=== PATIENT | male | born 1955 | race Caucasian/White ===

== ENCOUNTER 2020-06-15 03:14 | Inpatient (IN) | payer BC ==
--- OUTSIDE RECORDS SUMMARY | 2020-06-15 03:16 | XMS REPORT | Continuity of Care Document ---
:1955 Author Organization [facility] t Address [address] [place] [address] Care Team Providers Name Role Phone Unavailable Unavailable Unavailable Problems Condition Condition Condition Status Onset Resolution Last Treating Co mments Source Name Details Category Date Date Treatment Clinician Date PVC PVC Problem Active [facility]ature (premature [facility] - ventricula ventricula Me moria r r l contractio contractio Ou tpati n) n) ent Clinics Alcohol Alcohol Problem Active [facility] abuse [facility] Essential Essential Problem Active [facility] hypertensi hypertensi [facility] kes - on on [facility]oria l [facility] ent Clinics Type 2 Type [address] [facility] diabetes diabetes [facility] - mellitus mellitus Memori a with with l diabetic diabetic Outpat i peripheral peripheral en t angiopathy angiopathy Cl inics without without gangrene, gangrene, without without long-term long-term current current use of use of insulin insulin Atheroscle Atheroscle Problem Active [facility] rosis rosis [facility] Clinics Non-rheuma Non-rheuma Problem Active [facility] tic mitral tic mitral Anamaria kes - regurgitat regurgitat Me moria ion ion l [facility] ent Clinics Serum Serum Problem Active [facility] calcium calcium [facility] - elevated elevated Memori a l [facility] ent Clinics Vitamin D Vitamin D Problem Active [facility] deficiency deficiency [facility] k[facility] - [facility]oria l [facility] Clinics Primary Primary Problem Active [facility] osteoarthr osteoarthr [facility]aria kes - itis of itis of Memoria right knee right knee l [facility] ent Clinics Contact Contact Diagnosis [facility] with and with and [facility] - (suspected (suspected Me moria ) exposure ) exposure l to other to other Outpat i viral viral ent communicab communicab Cl inics le le diseases diseases Allergies, Adverse Reactions, Alerts Allergy Allergy Status Severity Reaction(s) Onset Inactive Treating Comm ents Source Name Type Date Date Clinician Compazin Adverse Active Info Not [facility] Reaction Available [facility] Medications Ordered Filled Start Stop Current Ordering Indication Dosage Frequency Signature Comments Components Source Medication Medication Date Date Medication? Clinician (SIG) Name Name Fish Oil Fish Oil Yes Lanie [address] [place] [facility]ics D3 Adult D3 Adult Yes Lanie [address] [place] [facility]ics Aspirin Aspirin Yes Lanie [address] [facility] [place] [facility] Lipitor Lipitor Yes Lanie [address] [facility] [place] [facility] - [facility] ent Clinics Diovan HCT Diovan HCT Yes Lanie [address] [facility] [place] [facility] - [facility] ent Clinics Metformin Metformin Yes Lanie TAKE [address] HCl HCl [place] TABLET BY [facility] - MOUTH Memoria TWICE A l DAY [facility] ent Clinics Plavix Plavix Yes Lanie [address] [facility] [place] [facility] ent Clinics Amlodipine Amlodipine Yes Lanie [address] [facility] Besylate Besylate [place] kes - [facility] ent Clinics Atorvastati Atorvastati Yes Lanie not [facility] n Calcium n Calcium [place] defined [facility] - Memoria l [facility] ent Clinics Valsartan-H Valsartan-H Yes Lanie not [facility] ydrochlorot ydrochlorot [place] defined [facility] - hiazide hiazide Memoria l [facility] ent Clinics Immunizations Ordered Filled Immunization Date Status Comments Sourc e Immunization Name Name Flucrajx Flucbayronvax 2018-03-[address] [facility] Procedures This patient has no known procedures. Encounters Start End Encounter Admission Attending Care Care Encounter Source Date/Time Date/Time Type Type Clinicians Facility Department ID 2019-12-20 2019-12-20 Outpatient Reji Ulloa [id number] [facility] 14[facility] Medicine Medicine [facility] ent Clinics 2019-12-20 2019-12-20 Outpatient Reji Ulloa [id number] [facility] 08:20:00 08:20:00 t [facility] ent Clinics 2018-09-07 2018-09-07 [place] [id number] [facility] 09:30:00 09:30:00 t [facility] ent Clinics 2018-07-13 2018-07-13 [facility] [facility] [id number] [facility] 11:06:00 11:06:00 t [facility] ent Clinics 2018-03-30 2018-03-30 [facility] [id number] 09:34:00 09:34:00 t [facility] ent Clinics 2018-03-23 2018-03-23 [place] [id number] [facility] 14:24:00 14:24:00 t [facility] ent Clinics 2018-03-15 2018-03-15 [place] [facility] [place] [id number] [facility] 11:30:00 11:30:00 t [facility] ent Clinics Results This patient has no known results.
[2020-06-15] MEDS ORDERED: METOPROLOL TARTRATE 5 MG/5 ML INJ IV ONE (03:55)
[2020-06-15] MEDS ORDERED: MORPHINE 4 MG/ML SYR ONE (03:55)
[2020-06-15 04:03] LABS: Absolute Lymphocytes (CBC) 1.7 K/uL (0.7-4.9); Basophils % 1.2 % (0-1.3); Hematocrit 38.6 % (39.6-49.0); Lymphocytes % 25.5 % (15.3-44.8); MPV 9.5 fL (7.6-11.3); RBC Red Blood Cell Count 4.38 M/uL (4.33-5.43)
[2020-06-15 04:04] LABS: Protime INR 0.91
[2020-06-15 04:17] LABS: Albumin 3.7 g/dL (3.4-5.0); Bilirubin Direct 0.1 mg/dL (0-0.2); Bilirubin Total 0.4 mg/dL (0.2-1.0); Potassium 3.8 mmol/L (3.5-5.1); Protein, Total 7.6 g/dL (6.4-8.2)
--- NOTE | 2020-06-15 04:32 | ER ---
Nurse's Notes [facility] Name: Santy N[facility] Age: 65 yrs Sex: Male : 1955 Arrival Date: 06/15/2020 Time: 03:15 Bed 7 Private MD: Diagnosis: Non-ST elevation (NSTEMI) myocardial infarction;Atypical atrial flutter Presentation: 06/15 03:36 Chief complaint: Patient states: Reports chest pain that woke him from his sleep this lp1 morning; states intermittent chest pain for the last 2-3 weeks; states some shortness of breath. Coronavirus screen: Client denies travel out of the [place] in the last 14 days. shortness of breath. Ebola Screen: No symptoms or risks identified at this time. Initial Sepsis Screen: Does the patient meet any 2 criteria? No. Patient's initial sepsis screen is negative. Does the patient have a suspected source of infection? No. Patient's initial sepsis screen is negative. Risk Assessment: Do you want to hurt yourself or someone else? Patient reports no desire to harm self or others. Onset of symptoms was June 15, 2020 at 02:00. 03:36 Method Of Arrival: Wheelchair lp1 03:36 Acuity: TANNA 2 lp1 Triage Assessment: 03:30 General: Appears in no apparent distress. comfortable, Behavior is calm, cooperative, rr5 appropriate for age. 03:30 Pain: Complains of pain in chest. rr5 Historical: - Allergies: 03:41 Compazine; lp1 - Home Meds: 03:41 Metformin Oral [Active]; atorvastatin oral oral [Active]; Aspirin Oral [Active]; lp1 - PMHx: 03:41 Diabetes - NIDDM; Hyperlipidemia; Hypertension; lp1 - PSHx: 03:41 Hernia repair; lp1 - Immunization history:: Adult Immunizations up to date. - Social history:: Smoking status: Patient denies any tobacco usage or history of. Screenin:30 Fall Risk IV access (20 points). Total Vogt Fall Scale indicates No Risk (0-24 pts). rr5 03:41 Abuse screen: Denies threats or abuse. Denies injuries from another. Nutritional lp1 screening: No deficits noted. Tuberculosis screening: No symptoms or risk factors identified. Assessment: 03:30 General: Appears in no apparent distress. uncomfortable. rr5 03:30 Pain: Complains of pain in chest Pain radiates to left arm and neck Pain currently is 5 rr5 out of 10 on a pain scale. Quality of pain is described as aching, Pain began gradually, Is intermittent. Neuro: Level of Consciousness is awake, alert, obeys commands, Oriented to person, place, time, situation. Cardiovascular: Reports chest pain, Capillary refill < 3 seconds Patient's skin is warm and dry. Respiratory: Reports shortness of breath Airway is patent Respiratory effort is even, unlabored, Respiratory pattern is regular, symmetrical. GI: Abdomen is round non-distended. : No signs and/or symptoms were reported regarding the genitourinary system. EENT: No signs and/or symptoms were reported regarding the EENT system. Derm: Skin is intact, is healthy with good turgor, Skin temperature is warm. Musculoskeletal: Circulation, motion, and sensation intact. Capillary refill < 3 seconds. 03:55 Reassessment: Patient appears in no apparent distress at this time. Patient is alert, rr5 oriented x 3, equal unlabored respirations, skin warm/dry/pink. repeat ECG done and checked by ED provider Patient states symptoms have improved. 04:29 Reassessment: troponin 2.0 glucose 432 candy from laboratory called ED provider aware. rr5 04:37 Reassessment: ED provider order heparin drip without loading bolus dose as confirmed. rr5 05:30 Reassessment: Patient appears in no apparent distress at this time. Patient is alert, rr5 oriented x 3, equal unlabored respirations, skin warm/dry/pink. no signs of bleeding ongoing heparin drip. 06:01 Reassessment: Patient appears in no apparent distress at this time. Patient is alert, rr5 oriented x 3, equal unlabored respirations, skin warm/dry/pink. Patient denies pain at this time. Patient states feeling better. Patient states symptoms have improved. 06:20 Reassessment: admitted as ER hold awaiting for in patient orders. rr5 06:45 Reassessment: Patient appears in no apparent distress at this time. Patient is alert, rr5 oriented x 3, equal unlabored respirations, skin warm/dry/pink. hospitalist at bedside. Vital Signs: 03:36 BP 161 / 104; Pulse 137; Resp 19; Temp 98.1(O); Pulse Ox 96% on R/A; Weight 84.82 kg lp1 (R); Height 5 ft. 10 in. (177.80 cm); Pain 5/10; 03:50 BP 160 / 108; Pulse 75; Resp 18; Pulse Ox 98% ; rr5 04:35 BP 117 / 62; Pulse 78; Resp 16; Pulse Ox 99% ; Pain 3/10; rr5 05:30 BP 123 / 80; Pulse 70; Resp 17; Pulse Ox 98% ; rr5 06:00 BP 113 / 75; Pulse 79; Resp 15; Pulse Ox 98% ; Pain 0/10; rr5 03:36 Body Mass Index 26.83 (84.82 kg, 177.80 cm) lp1 ED Course: 03:15 Patient arrived in ED. bp1 03:23 Andrew Arboleda MD is Attending Physician. tw4 03:30 Mathieu Acevedo, RN is Primary Nurse. rr5 03:40 Triage completed. lp1 03:40 Arm band placed on. lp1 03:41 Patient has correct armband on for positive identification. Placed in gown. Bed in low lp1 position. Call light in reach. rn office on. Pulse ox on. NIBP on. 03:41 Patient maintains SpO2 saturation greater than 95% on room air. lp1 03:48 Inserted saline lock: 18 gauge in left forearm, using aseptic technique. Blood rr5 collected. 04:12 No provider procedures requiring assistance completed. rr5 04:26 XRAY Chest (1 view) In Process Unspecified. EDMS 04:30 Dennis Rowe DO is Hospitalizing Provider. tw4 06:03 Patient admitted, IV remains in place. intact, No redness/swelling at site. rr5 07:26 Notified the admitting physician of a critical lab result(s), troponin-5.64, Dr Kelsey saeed called on the phone. Informed him that there is no cardiology consult and no more repeat troponin's to be drawn. He stated he would put in some orders. 08:22 Primary Nurse role handed off by Mathieu Acevedo, RN darlin 08:22 Jennifer Dawn, HEATHER is Primary Nurse. sv Administered Medications: 03:45 Drug: morphine 4 mg {Note: rass 0.} Route: IVP; Site: left forearm; rr5 04:40 Follow up: Response: No adverse reaction rr5 04:40 Follow up: Response: RASS: Alert and Calm (0) rr5 03:46 Drug: Lopressor 5 mg Route: IVP; Site: left forearm; rr5 04:46 Follow up: Response: No adverse reaction; Blood pressure is lowered rr5 05:10 Drug: Heparin (PA Drip) 12 units/kg/hr - (HEParin 00065 units, D5W 500 ml) rr5 {Co-Signature: mg2 (Jose Raul Woods RN).} Route: IV; Rate: calculated rate; Site: left forearm; 06:21 Follow up: Response: No adverse reaction; IV Status: Infusion continued upon admission; rr5 IV Intake: 20ml Intake: 06:20 PO: 480ml (Water); Total: 480ml. rr5 06:21 IV: 20ml; Total: 500ml. rr5 Output: 06:20 Urine: 850ml (Voided); Total: 850ml. rr5 Outcome: 04:31 Decision to Hospitalize by Provider. tw4 06:04 Condition: stable rr5 06:04 Instructed on the need for admit. 06:30 Admitted to ER Hold. Please see [facility] for further documentation. rr5 17:24 Patient left the ED. sv Signatures: Dispatcher [employer] Jennifer Diaz, RN RN sv Carolann Delgadillo, RN RN lp1 Andrew Arboleda MD MD tw4 Mathieu Acevedo RN RN rr5 Tri Denson RN mg2
--- NOTE | 2020-06-15 04:32 | EDPHYS ---
Physician Documentation [facility] Name: Santy Nix Age: 65 yrs Sex: Male : 1955 Arrival Date: 06/15/2020 Time: 03:15 Bed 7 Private MD: ED Physician Andrew Arboleda HPI: 06/15 03:43 This 65 yrs old Male presents to ER via Wheelchair with complaints of Chest tw4 Pain > 30 y/o. 03:43 The patient or guardian reports chest pain that is located primarily in the anterior tw4 chest wall. The patient or guardian reports chest pain that is located primarily in the anterior chest wall, left. Onset: yesterday. The pain does not radiate. Associated signs and symptoms: The patient has no apparent associated signs or symptoms. The chest pain is described as aching. Duration: The patient or guardian reports a single episode. Severity of pain: At its worst the pain was moderate in the emergency department the pain is unchanged. Historical: - Allergies: 03:41 Compazine; lp1 - Home Meds: 03:41 Metformin Oral [Active]; atorvastatin oral oral [Active]; Aspirin Oral [Active]; lp1 - PMHx: 03:41 Diabetes - NIDDM; Hyperlipidemia; Hypertension; lp1 - PSHx: 03:41 Hernia repair; lp1 - Immunization history:: Adult Immunizations up to date. - Social history:: Smoking status: Patient denies any tobacco usage or history of. ROS: 03:43 Constitutional: Negative for fever, chills, and weight loss, Eyes: Negative for injury, tw4 pain, redness, and discharge, Respiratory: Negative for shortness of breath, cough, wheezing, and pleuritic chest pain, Abdomen/GI: Negative for abdominal pain, nausea, vomiting, diarrhea, and constipation, Back: Negative for injury and pain, Skin: Negative for injury, rash, and discoloration, Neuro: Negative for headache, weakness, numbness, tingling, and seizure. 03:43 Cardiovascular: Positive for chest pain, Negative for edema, orthopnea, palpitations, paroxysmal nocturnal dyspnea. Exam: 03:43 Constitutional: This is a well developed, well nourished patient who is awake, alert, tw4 and in no acute distress. Head/Face: Normocephalic, atraumatic. Chest/axilla: Normal chest wall appearance and motion. Nontender with no deformity. No lesions are appreciated. Respiratory: Lungs have equal breath sounds bilaterally, clear to auscultation and percussion. No rales, rhonchi or wheezes noted. No increased work of breathing, no retractions or nasal flaring. Abdomen/GI: Soft, non-tender, with normal bowel sounds. No distension or tympany. No guarding or rebound. No evidence of tenderness throughout. Back: No spinal tenderness. No costovertebral tenderness. Full range of motion. MS/ Extremity: Pulses equal, no cyanosis. Neurovascular intact. Full, normal range of motion. Neuro: Awake and alert, GCS 15, oriented to person, place, time, and situation. Cranial nerves II-XII grossly intact. Motor strength 5/5 in all extremities. Sensory grossly intact. Cerebellar exam normal. Normal gait. 03:43 Cardiovascular: Rate: tachycardic, actual rate is 140 bpm, Rhythm: regular. Vital Signs: 03:36 BP 161 / 104; Pulse 137; Resp 19; Temp 98.1(O); Pulse Ox 96% on R/A; Weight 84.82 kg lp1 (R); Height 5 ft. 10 in. (177.80 cm); Pain 5/10; 03:50 BP 160 / 108; Pulse 75; Resp 18; Pulse Ox 98% ; rr5 04:35 BP 117 / 62; Pulse 78; Resp 16; Pulse Ox 99% ; Pain 3/10; rr5 05:30 BP 123 / 80; Pulse 70; Resp 17; Pulse Ox 98% ; rr5 06:00 BP 113 / 75; Pulse 79; Resp 15; Pulse Ox 98% ; Pain 0/10; rr5 03:36 Body Mass Index 26.83 (84.82 kg, 177.80 cm) lp1 MDM: 03:24 Patient medically screened. tw4 04:34 Differential diagnosis: acute myocardial infarction, acute pericarditis, coronary tw4 artery disease pneumonia, pulmonary embolus, unstable angina. The patient was given aspirin in the Emergency Department. Data reviewed: vital signs, nurses notes. Counseling: I had a detailed discussion with the patient and/or guardian regarding: the historical points, exam findings, and any diagnostic results supporting the discharge/admit diagnosis, lab results, radiology results. 21:36 Data interpreted: Pulse oximetry: Interpretation: hypoxia. Plan: O2 by Mask applied. tw4 Physician consultation: Dennis Rowe DO regarding admission, to the ICU, patient's condition, and will see patient in ED. ED course: Pt required bipap in the ED. 06/15 03:36 Order name: Basic Metabolic Panel; Complete Time: 04:32 rr5 06/15 04:32 Interpretation: Normal except: GLUC 432; GFR 77. 06/15 03:36 Order name: CBC with Diff; Complete Time: 04:32 rr5 06/15 04:32 Interpretation: Normal except: HGB 13.4; HCT 38.6; PLT 133. 06/15 03:36 Order name: LFT's; Complete Time: 04:32 rr5 06/15 04:33 Interpretation: Normal except: ALK 161; GLOB 3.9; A/G 0.9. 06/15 03:36 Order name: Magnesium; Complete Time: 04:32 rr5 06/15 04:33 Interpretation: Within normal limits: MG 2.0. 06/15 03:36 Order name: NT PRO-BNP; Complete Time: 04:32 rr06/15 04:33 Interpretation: Abnormal: NT PRO-BNP 221. 06/15 03:36 Order name: PT-INR; Complete Time: 04:32 rr5 06/15 04:33 Interpretation: Within normal limits: PT 10.7. 06/15 03:36 Order name: Troponin (emerg Dept Use Only); Complete Time: 04:32 rr5 06/15 04:33 Interpretation: Abnormal: TROPED 2.00. 06/15 04:34 Order name: Ptt, Activated rr5 06/15 06:24 Order name: Troponin I EDWY 06/15 06:24 Order name: Urinalysis EDWY 06/15 06:24 Order name: CKMB Creatine Kinase MB EDWY 06/15 06:24 Order name: CKMB Creatine Kinase MB EDMS 06/15 06:24 Order name: CKMB Creatine Kinase MB EDMS 06/15 03:36 Order name: XRAY Chest (1 view) rr5 06/15 03:36 Order name: EKG; Complete Time: 03:37 rr5 06/15 03:36 Order name: Cardiac monitoring; Complete Time: 03:42 rr5 06/15 03:36 Order name: EKG - Nurse/Tech; Complete Time: 03:42 rr5 06/15 03:36 Order name: IV Saline Lock; Complete Time: 03:42 rr5 06/15 03:36 Order name: Labs collected and sent; Complete Time: 03:42 rr5 06/15 06:24 Order name: NPO EDMS 06/15 06:24 Order name: CKMB Creatine Kinase MB EDMS 06/15 06:45 Order name: SARS-COV-2 RT PCR EDMS 06/15 08:18 Order name: Glucose, Ancillary Testing EDMS 06/15 12:00 Order name: Troponin I EDMS 06/15 12:24 Order name: Glucose, Ancillary Testing EDMS 06/15 16:46 Order name: Glucose, Ancillary Testing EDMS 06/15 03:36 Order name: O2 Per Protocol; Complete Time: 03:42 rr5 06/15 03:36 Order name: O2 Sat Monitoring; Complete Time: 03:42 rr5 06/15 03:50 Order name: EKG - Nurse/Tech; Complete Time: 03:50 rr5 Administered Medications: 03:45 Drug: morphine 4 mg {Note: rass 0.} Route: IVP; Site: left forearm; rr5 04:40 Follow up: Response: No adverse reaction rr5 04:40 Follow up: Response: RASS: Alert and Calm (0) rr5 03:46 Drug: Lopressor 5 mg Route: IVP; Site: left forearm; rr5 04:46 Follow up: Response: No adverse reaction; Blood pressure is lowered rr5 05:10 Drug: Heparin (SD Drip) 12 units/kg/hr - (HEParin 89536 units, D5W 500 ml) rr5 {Co-Signature: mg2 (Jose Raul Woods RN).} Route: IV; Rate: calculated rate; Site: left forearm; 06:21 Follow up: Response: No adverse reaction; IV Status: Infusion continued upon admission; rr5 IV Intake: 20ml Disposition: 06/15/20 04:31 Hospitalization ordered by Dennis Rowe for Inpatient Admission. Preliminary diagnosis are Non-ST elevation (NSTEMI) myocardial infarction, Atypical atrial flutter. - Bed requested for Telemetry/MedSurg (Inpatient). - Status is Inpatient Admission. sv - Condition is Stable. - Problem is new. - Symptoms have improved. Signatures: Dispatcher [employer] EDWY Jennifer Dawn, RN RN sv Arlin Banda, RN RN Jenny Morales, RN RN Carolann Delgadillo, RN RN lp1 Andrew Arboleda MD MD tw4 Mathieu Acevedo, RN RN rr5 Jose Raul Woods RN mg2 Corrections: (The following items were deleted from the chart) 05:05 04:31 Hospitalization Ordered by Dennis Rowe DO for Inpatient Admission. Preliminary diagnosis is Non-ST elevation (NSTEMI) myocardial infarction; Atypical atrial flutter. Bed requested for Telemetry/MedSurg (Inpatient). Status is Inpatient Admission. Condition is Stable. Problem is new. Symptoms have improved. tw4 06:00 04:44 CORONAVIRUS+MR.LAB.BRZ ordered. [facility] EDMS 16:29 05:05 06/15/2020 04:31 Hospitalization Ordered by Dennis Rowe DO for Inpatient dw Admission. Preliminary diagnosis is Non-ST elevation (NSTEMI) myocardial infarction; Atypical atrial flutter. Bed requested for [facility] ER HOLD. Status is Inpatient Admission. Condition is Stable. Problem is new. Symptoms have improved. 17:24 16:29 06/15/2020 04:31 Hospitalization Ordered by Dennis Rowe DO for Inpatient sv Admission. Preliminary diagnosis is Non-ST elevation (NSTEMI) myocardial infarction; Atypical atrial flutter. Bed requested for Telemetry/MedSurg (Inpatient). Status is Inpatient Admission. Condition is Stable. Problem is new. Symptoms have improved. dw
[2020-06-15] MEDS ORDERED: HEPARIN/D5W 25,000 UNIT/500 ML BAG IV ONE (04:56)
[2020-06-15] MEDS ORDERED: ONDANSETRON 4 MG/2 ML VIAL IV PRN (06:17)
[2020-06-15] MEDS ORDERED: ACETAMINOPHEN 500 MG TAB PO PRN (06:17)
[2020-06-15] MEDS ORDERED: MORPHINE 2 MG/ML SYR IV PRN (06:24)
--- NOTE | 2020-06-15 06:26 | P.HP ---
Certification for Inpatient With expected LOS: >2 Midnights Practitioner: I am a practitioner with admitting privileges, knowledge of patient current condition, hospital course, and medical plan of care. Services: Services provided to patient in accordance with Admission requirements found in Title 42 Section 412.3 of the Code of Federal Regulations Patient History Date of Service: 06/15/20 Reason for admission: Chest pain, NSTEMI. History of Present Illness: 65 y o male pt with hx of DM type 2, HTN, HLD who came to the ED for evaluation of chest pain. He reported having chest pain over the last few weeks with occasions of radiation of pain to the jaws. Most episodes are associated with moderate exertion during yard work. No episodes of nausea, vomiting, headache, cough or sob. present episode of chest pain lasted quite long and it also had radiation to the left jaw prompting him to come to the ED for evaluation. Chest xray done showed no active issues and his troponin was elevated at 2.0. H is EKG was normal without signs of STEMI. He was started on ACS protocol for NSTEMI with heparin drip and he was admitted for further evaluation by cardiology. Allergies prochlorperazine edisylate [From Compazine] Allergy (Verified 09/06/13 19:36) Itching prochlorperazine maleate [From Compazine] Allergy (Verified 09/06/13 19:36) Itching Home medications list reviewed: Yes - Past Medical/Surgical History Diabetic: Yes Review of Systems General: Unremarkable Eyes: Unremarkable ENT: Unremarkable Respiratory: Cough Cardiovascular: Chest Pain Gastrointestinal: Unremarkable Integumentary: Unremarkable Neurological: Unremarkable Physical Examination - Vital Signs Temperature: 98 F Blood Pressure: 114/68 Pulse: 87 Respirations: 14 Pulse Ox (%): 97 - Physical Exam General: Alert, Oriented x3, Cooperative HEENT: Atraumatic, Normocephalic Neck: Supple Respiratory: Clear to auscultation bilaterally Cardiovascular: Regular rate/rhythm, Normal S1 S2 Gastrointestinal: Soft and benign Musculoskeletal: No swelling Neurological: Normal speech, Normal strength at 5/5 x4 extr, Cranial nerves 3-12 intact - Studies Laboratory Data (last 24 hrs) 06/15/20 05:10: APTT 26.3 06/15/20 03:38: PT 10.7, INR 0.91 06/15/20 03:38: WBC 6.7, Hgb 13.4 L, Hct 38.6 L, Plt Count 133 L 06/15/20 03:38: Sodium 136, Potassium 3.8, BUN 13, Creatinine 0.98, Glucose 432 H*, Magnesium 2.0, Total Bilirubin 0.4, AST 30, ALT 48, Alkaline Phosphatase 161 H Assessment and Plan - Plan 1. NSTEMI-Pt has had episodes of chest pain with mod exertion and radiation of pain to the jaw. Troponin was elevated at 2.0. EKG does not show ST elevation. Heparin drip was started as per protocol. we will trend troponin and CKMB. Cardiology to evaluate. 2. Hypertension-we will monitor blood pressure per unit protocol and continue antihypertensive meds. 3. Diabetes type 2-Blood glucose is poorly controlled for now. we will start SSI and have him on carb restricted diet when oral feeding resumes. for now, he will be kept NPO till cardiology evaluates him. 4. Hyperlipidemia- we will continue statin therapy. - Advance Directives Does patient have a Living Will: No Does patient have a Durable POA for Healthcare: No
[2020-06-15 07:14] LABS: CKMB Creatine Kinase MB 9.7 ng/mL (0.3-3.6)
[2020-06-15 07:18] LABS: Troponin I 5.64 ng/mL (0.0-0.045)
[2020-06-15] MEDS ORDERED: CLOPIDOGREL 75 MG TABLET PO ONE (07:28)
[2020-06-15] MEDS: INSULIN -REGULAR HUMAN 50 UNIT/0.5 ML ML SQ SCH ×4 (07:30→20:51)
--- NOTE | 2020-06-15 07:41 | P.PN ---
Date of Service: 06/15/20 Called by ER nursing staff. Patient troponins were elevated. Troponin of 5.1. No longer having chest pain. EKG shows atrial flutter with a rate control in the 60s. Continue with anti-platelet therapy, statin therapy, beta-olga therapy, and Lovenox therapy. Cardiology consulted. Echocardiogram in the morning.
[2020-06-15] MEDS: ASPIRIN EC 81 MG TAB PO SCH (07:53)
[2020-06-15] MEDS ORDERED: CLOPIDOGREL 75 MG TABLET ONE (08:00)
[2020-06-15] MEDS ORDERED: ASPIRIN EC 81 MG TAB PO ONE (08:01)
[2020-06-15] MEDS: ENOXAPARIN 100 MG/ML SYR SQ SCH ×2 (08:35→09:00)
[2020-06-15] MEDS ORDERED: ENOXAPARIN 100 MG/ML SYR SQ ONE (08:43)
[2020-06-15] MEDS ORDERED: INSULIN -REGULAR HUMAN 50 UNIT/0.5 ML ML ONE ×2 (08:43→16:52)
[2020-06-15] MEDS: METOPROLOL TAR 25 MG TAB PO SCH ×2 (08:48→20:43)
[2020-06-15] MEDS ORDERED: METOPROLOL TAR 25 MG TAB ONE (08:50)
[2020-06-15] MEDS ORDERED: ENOXAPARIN 100 MG/ML SYR SQ SCH ×2 (10:00→21:00)
[2020-06-15 10:39] VITALS: BMI 26.5
--- NOTE | 2020-06-15 12:39 | RAD REPORT ---
EXAM DESCRIPTION: RAD - Chest Single View - 06/15/2020 4:28 am CLINICAL HISTORY: CHEST PAIN Chest pain. COMPARISON: CHEST SINGLE VIEW dated 01/07/2015; CHEST PA AND LAT 2 VIEW dated 08/09/2014 FINDINGS: Portable technique limits examination quality. The lungs are grossly clear. The heart is upper limit of normal in size. No displaced fractures. IMPRESSION: No acute intrathoracic process suspected.
--- NOTE | 2020-06-15 15:27 | EKG ---
Test Date: 2020-06-15 Test Time: 03:29:43 Individual Pension Adviser: JOSE ALBERTO MEASUREMENT RESULTS: Intervals: Rate: 138 MN: QRSD: 92 QT: 334 QTc: 506 [place]: P: MN: QRS: 90 T: 21 INTERPRETIVE STATEMENTS: Supraventricular tachycardia Rightward axis Inferior infarct, possibly acute ACUTE NH / STEMI Consider right ventricular involvement in acute inferior infarct Abnormal ECG Compared to ECG 01/07/2015 14:16:02 Right-axis deviation now present Myocardial infarct finding now present Sinus bradycardia no longer present Electronically Signed On 06-15-20 15:26:22 PHARMACOVIGILANCE SCIENTIST by Orlando Holder
[2020-06-15] MEDS ORDERED: PNEUMOCOCCAL VACCINE 0.5 ML IMVAC ONE (17:00)
[2020-06-15] MEDS ORDERED: INFLUENZA VACCINE (for 3y+) 0.5 ML DOSE IMVAC ONE (17:00)
[2020-06-15] MEDS: ATORVASTATIN 40 MG TAB PO SCH (20:42)
--- NOTE | 2020-06-16 05:12 | P.PN ---
Subjective Date of Service: 06/15/20 initially had spoke with patient and because patient had BCBS they had requested to get transferred to a tertiary care facility. But patient was not able to get accepted because of capacity. Spoke with her bank and savings securities trader to spoke with the family and afterwards decision was made to go ahead and proceed with further workup at our facility as patient was found to have a NSTEMI. Grade for atrial flutter is controlled with beta-olga therapy. Continue with anti- platelet therapy and hold anticoagulation overnight. Review of Systems 10-point ROS is otherwise unremarkable Physical Examination - Vital Signs Temperature: 97.9 F Blood Pressure: 115/63 Pulse: 69 Respirations: 18 Pulse Ox (%): 96 - Physical Exam General: Alert, In no apparent distress, Oriented x3 Respiratory: Clear to auscultation bilaterally, Normal air movement Cardiovascular: Regular rate/rhythm, Normal S1 S2, Systolic murmur Gastrointestinal: Normal bowel sounds, Soft and benign, Non-distended, No tenderness Musculoskeletal: No clubbing, No swelling, No tenderness Neurological: Sensation intact, Cranial nerves 3-12 intact - Studies Laboratory Data (last 24 hrs) 06/15/20 06:30: Troponin I 5.64 H* 06/15/20 05:10: APTT 26.3 Medications List Reviewed: Yes Assessment & Plan - Problems (Diagnosis) (1) Atrial flutter Current Visit: Yes Status: Acute (2) NSTEMI (non-ST elevated myocardial infarction) Current Visit: Yes Status: Acute - Plan 1. Serial troponins 2. Cardiology consultation appreciated 3. cardiac catheterization in the morning 4. Anti-platelet therapy, anti coagulation, beta-olga, statin, and O2 as needed 5. IV morphine for pain 6. Nitro p.r.n. Discharge Plan: Home Plan to discharge in: 48 Hours - Advance Directives Does patient have a Living Will: No Does patient have a Durable POA for Healthcare: No - Code Status/Comfort Care Code Status Assessed: Yes Code Status: Full Code Critical Care: No Time Spent Managing PTS Care (In Minutes): 35
[2020-06-16] MEDS ORDERED: HEPA 1000U/500MLS 1,000 UNIT/500 ML BAG IV ONE (07:11)
[2020-06-16] MEDS: INSULIN -REGULAR HUMAN 50 UNIT/0.5 ML ML SQ SCH ×4 (07:30→20:29)
[2020-06-16] MEDS ORDERED: CLOPIDOGREL 75 MG TABLET PO SCH (09:00)
[2020-06-16] MEDS: ASPIRIN EC 81 MG TAB PO SCH (09:48)
[2020-06-16] MEDS: METOPROLOL TAR 25 MG TAB PO SCH ×2 (09:49→20:28)
--- NOTE | 2020-06-16 10:00 | CON ---
Date of Consultation: 06/15/[address] Cole on 06/15/2020. I saw the patient on 06/15/2020. Reason For Consultation: Non-ST elevation myocardial infarction. History Of Present Illness: Mr. Nix is a 65-year-old white male, has had a history of mild CAD __ few years ago. Has diabetes, hypertension, dyslipidemia, family history of heart disease. Came in with substernal chest pain radiating to the left jaw and left arm with diaphoresis, shortness of breath, nausea, no vomiting. Denied PND, orthopnea, pedal edema, palpitation, or syncope. Sympt oms were exertional. His initial EKG showed possible ST elevation, but that resolved and his chest p ain resolved quick with nitroglycerin, aspirin, Plavix, heparin, and morphine. He is pain free now. Allergies: HE IS ALLERGIC TO NAUSEA MEDICINE. Medications: Include Norvasc, Lipitor, Plavix, aspirin, metformin, valsartan with . Review of Systems: Negative. Social History: Negative. Family History: Positive for heart disease. Physical Examination: Vital Signs: Stable, afebrile. HEENT: Negative. Neck: Supple with no bruit. Chest: Clear to auscultation and percussion. Cardiac: Revealed a regular rhythm and rate. No murmurs, gallops, or rubs. Abdomen: Benign. Extremities: Revealed no clubbing, cyanosis, or edema. Diagnostic Data: Showed a glucose of 432, which came down to 260. His troponin was 15.4. Creatinin e 0.98. Impression And Plan: 1.Non-ST elevation myocardial infarction. 2.Hypertension. 3.Dyslipidemia. 4.Diabetes. 5.History of moderate coronary artery disease. There was an echocardiogram pending on Mr. Nix. I think we should continue his present regimen. We will stop the heparin on-call to the poultry hatchery laborer. W e will plan a heart catheterization on him in the morning to define his coronary anatomy. The patien t understands the risk and the benefits of the procedure and he agrees to proceed. LOVE/DINAL Voice ID: [id number] Report ID: [id number]
[2020-06-16] MEDS ORDERED: NA CHLORIDE 0.9% 500 ML ONE (10:13)
[2020-06-16] MEDS ORDERED: NA CHLORIDE 0.9% 0 ML ONE (11:17)
[2020-06-16] MEDS ORDERED: FENTANYL CITR 100 MCG/2 ML ONE (11:17)
[2020-06-16] MEDS ORDERED: ATROPINE SULF 1 MG/10 ML SYR IV ONE (11:17)
[2020-06-16] MEDS ORDERED: MIDAZOLAM HCL 2 MG/2 ML INJ ONE (11:17)
--- NOTE | 2020-06-16 11:45 | OP ---
Date of Procedure: 06/16/2020 Surgeon: Orlando Holder MD Fire Prevention Inspector: Keyana Yang. Preoperative Diagnosis: Mr. Nix is 65, was admitted on 06/15/2019 with a non-ST elevation myocard ial infarction. Procedure In Detail: Brought to the construction craft laborer today as an inpatient. He was prepped and draped in th e routine sterile fashion. Given Versed and fentanyl for sedation. A 6-Portuguese sheath was introduced in the right common femoral artery successfully using the Seldinger technique and 10 cc of Xylocaine . Angiography there was normal. StarClose was used to close the case. A JL4 and JR4 catheter were used to select the right main and left main respectively. He had an ostial 99% RCA occlusion that is a very dominant vessel. It had a BRONWYN 2 flow. There were collaterals to the distal RCA from the LA D. The left main had plaque buildup. Ostium of the circumflex had a 90% stenosis. There was an 80% mid LAD stenosis. Complications: None. Blood Loss: 5 mL. Postoperative Diagnosis: Severe coronary artery disease. Plan: Triple bypass surgery. I will transfer him to [place] today. I will hold his Plavix. Case w ill be discussed with the family. Anesthesia: Total conscious sedation was 45 minutes. LOVE/MICHAEL Voice ID: [id number] Report ID: [id number]
--- NOTE | 2020-06-16 12:29 | P.DS ---
Admission Date: 06/15/20 Discharge Date: 06/16/20 Primary Care Provider: Margarito Edmondson NP Disposition: TRANSFER TO [facility] Discharge Condition: GOOD Reason for Admission: Chest pain, NSTEMI. Consultations: Cardiology-Dr. Holder Procedures: Heart Cath: Date of Procedure: 06/16/2020 Surgeon: Orlando Holder MD Tire Stripper: Keyana Yang. Preoperative Diagnosis: Mr. Nix is 65, was admitted on 06/15/2019 with a non-ST elevation myocardial infarction. Procedure In Detail: He had an ostial 99% RCA occlusion that is a very dominant vessel. It had a BRONWYN 2 flow. There were collaterals to the distal RCA from the LAD. The left main had plaque buildup. Ostium of the circumflex had a 90% stenosis. There was an 80% mid LAD stenosis. Complications: None. Blood Loss: 5 mL. Postoperative Diagnosis: Severe coronary artery disease. Plan: Triple bypass surgery. Medical Problem List: Chest pain secondary to NSTEMI status post heart catheterization(ostial 99% RCA occlusion, dominant vessel. Left main had plaque buildup. Ostium of circumflex had 90% stenosis. 80% mid LAD stenosis) showing severe Coronary Artery Disease requiring triple bypass surgery Diabetes mellitus type 2 Hypertension Hyperlipidemia Brief History of Present Illness: 65-year-old male presented to the emergency room with chest pain. Patient with underlying history of diabetes, hypertension and hyperlipidemia. Patient found to have NSTEMI. The patient was admitted for further evaluation and treatment. Hospital Course: Patient presented with chest pain secondary to NSTEMI. Patient evaluated by Cardiology. Heart catheterization was performed. Ostial 99% RCA occlusion, dominant vessel. Left main had plaque buildup. Ostium of the circumflex had 90% stenosis. 80% mid LAD stenosis also identified. Patient with severe Coronary artery disease. Cardiology recommends transfer to [facility] Center for triple bypass surgery. Cardiology has made arrangements for the patient to go to [facility] to continue treatment including triple bypass surgery. Plavix has been held. Continue current medications including aspirin, Lovenox, metoprolol, Lipitor and insulin sliding scale. Patient with history of diabetes mellitus type 2, hypertension, and hyperlipidemia. Continue as above. Vital Signs/Physical Exam: Temp Pulse Resp BP Pulse Ox 96.7 F L 67 20 107/63 97 06/16/20 12:10 06/16/20 12:10 06/16/20 12:10 06/16/20 12:10 06/16/20 08:00 General: Alert, In no apparent distress, Oriented x3, Cooperative HEENT: Atraumatic Neck: Supple Respiratory: Clear to auscultation bilaterally, Normal air movement Cardiovascular: Normal pulses, Regular rate/rhythm Gastrointestinal: Normal bowel sounds, Soft and benign, Non-distended Neurological: Normal speech, Normal strength at 5/5 x4 extr, Normal tone, Normal affect Laboratory Data at Discharge: WBC 6.7 K/uL (4.3-10.9) 06/15/20 03:38 Hgb 13.4 g/dL (13.6-17.9) L 06/15/20 03:38 Hct 38.6 % (39.6-49.0) L 06/15/20 03:38 Plt Count 133 K/uL (152-406) L 06/15/20 03:38 PT 10.7 SECONDS (9.5-12.5) 06/15/20 03:38 INR 0.91 06/15/20 03:38 APTT 26.3 SECONDS (24.3-36.9) 06/15/20 05:10 Sodium 136 mmol/L (136-145) 06/15/20 03:38 Potassium 3.8 mmol/L (3.5-5.1) 06/15/20 03:38 BUN 13 mg/dL (7-18) 06/15/20 03:38 Creatinine 0.98 mg/dL (0.55-1.3) 06/15/20 03:38 Glucose 432 mg/dL (74-106) H* 06/15/20 03:38 Magnesium 2.0 mg/dL (1.8-2.4) 06/15/20 03:38 Total Bilirubin 0.4 mg/dL (0.2-1.0) 06/15/20 03:38 AST 30 U/L (15-37) 06/15/20 03:38 ALT 48 U/L (12-78) 06/15/20 03:38 Alkaline Phosphatase 161 U/L (45-117) H 06/15/20 03:38 Troponin I 15.40 ng/mL (0.0-0.045) H* D 06/15/20 11:20 Home Medications: Amlodipine [Norvasc] 10 mg PO DAILY 06/15/20 Aspirin [Adult Aspirin Regimen] 81 mg PO DAILY 06/15/20 Atorvastatin Calcium [Lipitor] 80 mg PO BEDTIME 06/15/20 Cholecalciferol (Vitamin D3) [Vitamin D3] 5,000 unit PO DAILY 06/15/20 Clopidogrel Bisulfate [Plavix] 75 mg PO DAILY 06/15/20 Metformin HCl 1,000 mg PO BID 06/15/20 [place]-3S/Dha/Epa/Fish Oil [Fish Oil [place]-3 Softgel] 1 each PO BID 06/15/20 Valsartan/Hydrochlorothiazide [Valsartan-Hctz 320-12.5 mg Tab] 1 each PO DAILY 06/15/20 Patient Discharge Instructions: Patient to be transferred to [facility] for triple cardiac bypass surgery. Diet: ADA Activity: Ad saeid Followup: Unknown,U [Primary Care Provider] - Time spent managing pt's care (in minutes): 55
[2020-06-16] MEDS ORDERED: INSULIN -REGULAR HUMAN 50 UNIT/0.5 ML ML ONE (12:38)
[2020-06-16 13:28] LABS: HDL Cholesterol 30 mg/dL (40-60)
[2020-06-16 13:39] LABS: LDL, Direct 62 mg/dL (100-129)
[2020-06-16 14:32] VITALS: O2SAT 96
--- NOTE | 2020-06-16 15:02 | ECHO ---
HEIGHT: 5 ft 10 in WEIGHT: 185 lb 3.013 oz DATE OF STUDY: 06/16/[address]: Consuelo Cole MD 2-DIMENSIONAL: YES M.MODE: YES DOPPLER: YES COLOR FLOW: YES TDS: PORTABLE: DEFINITY: BUBBLE STUDY: DIAGNOSIS: ATRIAL FLUTTER CARDIAC HISTORY: CATHERIZATION: YES SURGERY: NO PROSTHETIC VALVE: NO PACEMAKER: NO MEASUREMENTS (cm) DIASTOLIC (NORMALS) SYSTOLIC (NORMALS) IVSd 1.0 (0.6-1.2) LA Diam 4.4 (1.9-4.0) LVEF 55-60% LVIDd 3.9 (3.5-5.7) LVIDs 2.9 (2.0-3.5) %FS 26% LVPWd 1.1 (0.6-1.2) Ao Diam 2.7 (2.0-3.7) 2 DIMENSIONAL ASSESSMENT: RIGHT ATRIUM: NORMAL LEFT ATRIUM: ENLARGED RIGHT VENTRICLE: NORMAL LEFT VENTRICLE: NORMAL TRICUSPID VALVE: NORMAL MITRAL VALVE: MILD MITRAL REGURGITATION PULMONIC VALVE: MILD PULMONARY INSUFFIENCY AORTIC VALVE: NORMAL PERICARDIAL EFFUSION: NONE AORTIC ROOT: NORMAL LEFT VENTRICULAR WALL MOTION: NORMAL DOPPLER/COLOR FLOW: SEE BELOW COMMENTS: NORMAL LEFT VENTRICULAR EJECTION FRACTION 55-60% WITH NORMAL WALL MOTION. MILD TO MODERATE MITRAL REGURGITATION. LEFT ATRIAL ENLARGEMENT. MILD PULMONARY INSUFFIENCY. TECHNOLOGIST: JUAN SILVESTRE
[2020-06-16] MEDS: ATORVASTATIN 40 MG TAB PO SCH (20:28)
[2020-06-16 20:29] VITALS: BP 139/75
[2020-06-16 20:32] VITALS: TEMP 97.5
== END 2020-06-16 22:25 | disposition short-term general hospital (02) | DRG 281 ==
LOC: ER 03:14 → ERHOLD 06:37 → 2ND 17:01
PROVIDERS: ADMIT Hospitalist; ATTEND Family Medicine
PROC: 4A023N7 Measurement of Cardiac Sampling and Pressure, Left Heart, Percutaneous Approach (ICD-10-PCS; principal; 2020-06-16)
PROC: B2111ZZ Fluoroscopy of Multiple Coronary Arteries using Low Osmolar Contrast (ICD-10-PCS; 2020-06-16)
DX: I21.4 Non-ST elevation (NSTEMI) myocardial infarction (principal); I48.92 Unspecified atrial flutter; I10 Essential (primary) hypertension; E78.5 Hyperlipidemia, unspecified; E11.9 Type 2 diabetes mellitus without complications; I25.10 Atherosclerotic heart disease of native coronary artery without angina pectoris; Z88.8 Allergy status to other drugs, medicaments and biological substances; Z79.84 Long term (current) use of oral hypoglycemic drugs; Z79.82 Long term (current) use of aspirin; Z79.02 Long term (current) use of antithrombotics/antiplatelets; Z79.899 Other long term (current) drug therapy; Z20.822 Contact with and (suspected) exposure to COVID-19
CPT/HCPCS: 36415; 71045; 80048; 80061; 80076; 82553; 82947; 83735; 83880; 84484; 85025; 85610; 85730; 93005; 93306; 93454; 96365; 96375; 99285; C1893; J0583; J1644; J1650; J2250; J2270; J3010; J7040; U0003

== ENCOUNTER 2022-11-26 07:00 | Day surgery (SDC) | payer OTHER, BC ==
[2022-11-23 13:57] LABS: Potassium 3.6 mEq/L (3.5-5.1)
[2022-11-23 14:21] LABS: Absolute Lymphocytes (CBC) 1.7 K/uL (0.7-4.9); Hematocrit 45.1 % (39.6-49.0); Lymphocytes % 24.2 % (15.3-44.8); MCV 90.1 fL (80-100); MPV 9.3 fL (7.6-11.3)
--- NOTE | 2022-11-25 13:57 | EKG ---
Test Date: 2022-11-23 Test Time: 13:18:07 Brakes Inspector: KRISTEL MEASUREMENT RESULTS: Intervals: Rate: 60 VT: QRSD: 84 QT: 448 QTc: 448 [place]: P: 73 VT: QRS: 80 T: 97 INTERPRETIVE STATEMENTS: Atrial flutter Nonspecific T wave abnormality Abnormal ECG Compared to ECG 06/15/2020 03:43:37 T-wave abnormality now present ST (T wave) deviation no longer present Electronically Signed On 11-25-22 13:55:45 CDT by Seb Burnett
[~2022-11-26 07:00] MED LIST: ATROPINE SULF 1 MG/10 ML SYR IV ONE; FLUMAZENIL 0.1 MG/ML (5 mL VIAL) IV ONE; HYDRALAZINE HCL 20 MG/ML VIAL ONE; LIDOCAINE VISCOUS 2% SOLN 15 ML UDC ONE; METOPROLOL TARTRATE 5 MG/5 ML INJ IV ONE; MIDAZOLAM HCL 10 ML ONE; PHENOL 1.4% ORAL SPRAY 180ML ONE
[2022-11-26] MEDS ORDERED: NA CHLORIDE 0.9% 500 ML ONE (07:16)
--- NOTE | 2022-11-26 08:29 | OP ---
Date of Procedure: 11/26/2022 Surgeon: DIVINA AGEE Procedures Performed: 1.Transesophageal echocardiogram. 2.Electrical cardioversion of atrial flutter into normal sinus rhythm using synchronized 200 joule s hock. Description Of Procedure: After risks, benefits, alternatives were explained, the patient agreed to procedure and signed informed consent. The patient was brought into the OR room 5. After proper bertrand e-out, the back of throat was numbed using viscous lidocaine and then gave 5 mg of Versed. Then, DARRIN probe was inserted without difficulties. No thrombus was seen and the appendage appeared to be surg ically closed. As such, DARRIN probe was removed and then a synchronized 200 joule shock was delivered successfully converting the rhythm into normal sinus rhythm. Conclusion: Successful DARRIN-guided electrical cardioversion to normal sinus rhythm. SR/MODL Voice ID: [id number] Report ID: [id number]
--- NOTE | 2022-11-26 14:15 | EKG ---
Test Date: 2022-11-26 Test Time: 08:03:06 Gaming Cage Cashier: SOPHIE MEASUREMENT RESULTS: Intervals: Rate: 45 CO: 256 QRSD: 96 QT: 526 QTc: 454 [place]: P: 75 CO: 256 QRS: 93 T: 109 INTERPRETIVE STATEMENTS: Marked sinus bradycardia with 1st degree AV block Rightward axis Nonspecific T wave abnormality Abnormal ECG Compared to ECG 11/23/2022 13:18:07 First degree AV block now present Right-axis deviation now present Atrial flutter no longer present T-wave abnormality still present Electronically Signed On 11-26-22 14:15:06 CDT by Seb Burnett
--- NOTE | 2022-11-26 14:23 | TEE ---
TRANSESOPHAGEAL ECHOCARDIOGRAM REPORT CARDIOLOGY DEPARTMENT DATE OF STUDY: 11/26/2022 HEIGHT: 5'10" WEIGHT: 200 lbs DIAGNOSIS: CARDIOVERSION REGISTERED NURSE BEHAVIORAL HEALTH COMMENTS: DARRIN CARDIAC HISTORY: CATHERIZATION: SURGERY: PROSTHETIC VALVE: PACEMAKER: 2 DIMENSIONAL ASSESSMENT: RIGHT ATRIUM: LEFT ATRIUM: RIGHT VENTRICLE: LEFT VENTRICLE: TRICUSPID VALVE: MITRAL VALVE: PULMONIC VALVE: AORTIC VALVE: PERICARDIAL EFFUSION: AORTIC ROOT: EJECTION FRACTION: 55-60 % LEFT VENTRICULAR WALL MOTION: DOPPLER/COLOR FLOW: COMMENTS: 1. NORMAL LEFT VENTRICULAR EJECTION FRACTION 55-60% 2. MILD MITRAL REGURGITATION 3. LEFT ATRIAL APPENDAGE APPEARS TO BE CLOSED SURGICALLY. NO THROMBUS. TECHNOLOGIST: AYAKA SULLIVAN
== END 2022-11-26 09:06 | disposition home or self-care (01) ==
LOC: CCL 07:00
PROVIDERS: ATTEND Internal Medicine
DX: I48.4 Atypical atrial flutter (principal); I48.91 Unspecified atrial fibrillation; I44.30 Unspecified atrioventricular block; I25.10 Atherosclerotic heart disease of native coronary artery without angina pectoris; I65.22 Occlusion and stenosis of left carotid artery; I10 Essential (primary) hypertension; E11.9 Type 2 diabetes mellitus without complications; E78.5 Hyperlipidemia, unspecified; Z79.01 Long term (current) use of anticoagulants; Z79.82 Long term (current) use of aspirin; Z79.84 Long term (current) use of oral hypoglycemic drugs; Z79.4 Long term (current) use of insulin; Z79.899 Other long term (current) drug therapy; Z88.8 Allergy status to other drugs, medicaments and biological substances
CPT/HCPCS: 93005 ×2; 93312; 85025; 80048; 36415; 85610; 82947; 85730; 92960; J2250; J7040; J0360; J0461

== ENCOUNTER 2023-03-20 00:55 | Emergency (ER) | payer OTHER, BC ==
--- OUTSIDE RECORDS SUMMARY | 2023-03-20 00:59 | XMS REPORT | Continuity of Care Document ---
:1955 Author Organization [facility] t Address [address] [facility] [place] [place] [address] Care Team Providers Name Role Phone Asked, No Pcp Primary Care Physician Unavailable Seb Burnett Attending Clinician Unavailable Lanie Edmondson Attending Clinician Unavailable Noe Hopper MD Attending Clinician ANDER PERERA Attending Clinician Unavailable MD ANDER PERERA Attending Clinician Unavail able Seb Burnett Admitting Clinician Unavailable Lanie Edmondson Admitting Clinician Unavailable ANDER PERERA Admitting Clinician Unavailable MD ANDER PERERA Admitting Clinician Unavail able Payers Payer Name Policy Type Policy Number Effective Date Expiration Date S sagrario [employer] 6 [id number] 2016 [facility] [employer] of 00:00:00 [facility] Problems Condition Condition Condition Status Onset Resolution Last Treating Co mments Source Name Details Category Date Date Treatment Clinician Date 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 2 1-14 diabetes diabetes 00:00: Hospit a mellitus mellitus 00 l with with reconnaissance man reconnaissance man y y disorder, disorder, without without long-term long-term current current use of use of insulin insulin Vitamin D Vitamin D Disease Active Met hodi deficiency deficiency 14 st 00:00: Hospita 00 l Coronary Coronary Disease Active Metho di artery artery 1-05 st disease disease 00:00: Hospita involving involving 00 l iqugmiut iqugmiut coronary coronary artery of artery of iqugmiut iqugmiut heart with heart with unstable unstable angina angina pectoris pectoris PAD PAD Disease Active Overview: Method i (periphera (periphera [address] l artery l artery 00:00: g of this Hos kassie disease) disease) 00 note l might be different from the original. Added automatic ally from request for surgery [id number] Paroxysmal Problem Co mmon atrial Spirit fibrillati - [facility] on [facility] [id number] Alcohol Problem Common abuse [facility] [id number] PVC Problem Common (premature Spirit ventricula - 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 ion [facility] [id number] Serum Problem Common calcium Spirit elevated [facility] Allergies, Adverse Reactions, Alerts Allergy Allergy Status Severity Reaction(s) Onset Inactive Treating Comm ents Source Name Type Date Date Clinician Kali Propensi Active Seizure Metho di perazine ty to [address] adverse 00:00: Hospita reaction 00 l s to drug prochlor DA Active [facility] perazine 3-23 Clear 00:00: Ambrose [address] [place] [address] 0 Drug Active Unknown Common allergy Spirit [facility] Family History Family Member Diagnosis Comments Start Date Stop Date Source Natural brother Coronary artery [facility] disease Social History Social Habit Start Date Stop Date Quantity Comments Source History of Tobacco [facility] - Use [facility] Sexual orientation [facility] History of Social 2022-08-212022-08-[address] function 00:00:00 00:00:00 Hospital Alcohol intake 2020-07-02 2020-07-02 Current drinker Metho dist 00:00:00 00:00:00 of alcohol Hospital (finding) Alcohol Comment 2020-06-17 2020-06-17 Drinks beer when Met hodist 00:00:00 00:00:00 not working Hospital Tobacco use and 2020-06-17 2020-06-17 Smokeless [facility] 00:00:00 00:00:00 tobacco non-user Hospital Sex Assigned At [birth year] [facility] 00:[facility] Hospital Smoking Status Start Date Stop Date Source Never Smoker Common IMScouting [facility] Medications Ordered Filled Start Stop Current Ordering Indication Dosage Frequency Signature Comments Components Source Medication Medication Date Date Medication? Clinician (SIG) Name Name Fenofibrate Fenofibrate No 1{table QD Fenofibrat 145 MG 145 MG 1-25 t} e 145 MG 00:00: 00 Jardiance Jardiance 0 No 1{table QD Jardiance 25 MG 25 MG 1-25 t} 25 MG 00:00: 00 Jardiance Jardiance 0 No 1{table QD Jardiance 25 MG 25 MG 1-25 t} 25 MG 00:00: 00 Insulin Insulin 2020-06 No Insulin Syringe/Nee Syringe/Nee 2-09 Syringe/Ne dle 28G X dle 28G X 00:00: edle 28G X 1/2" 1 ML 1/2" 1 ML 00 1/2" 1 ML Insulin Insulin 2020-06 No Insulin Syringe/Nee Syringe/Nee 2-09 Syringe/Ne dle 28G X dle 28G X 00:00: edle 28G X 1/2" 1 ML 1/2" 1 ML 00 1/2" 1 ML Insulin Insulin 2020-06 No Insulin Syringe/Nee Syringe/Nee 2-09 Syringe/Ne dle 28G X dle 28G X 00:00: edle 28G X 1/2" 1 ML 1/2" 1 ML 00 1/2" 1 ML Insulin Insulin 2020-06 No Insulin Syringe/Nee Syringe/Nee 2-09 Syringe/Ne dle 28G X dle 28G X 00:00: edle 28G X 1/2" 1 ML 1/2" 1 ML 00 12" 1 ML Insulin Insulin 2020-06 No Insulin Syringe/Nee Syringe/Nee 209 Syringe/Ne dle 28G X dle 28G X 00:00: edle 28G X 1/2" 1 ML 1/2" 1 ML 00 1/2" 1 ML Pen Sullivan Pen Sullivan 2020-06 No Pen 10/26" 31G X 10/26" 31G X 1-02 Sullivan 8 MM 8 MM 00:00: 10/26" 31G 00 X 8 MM Pen Sullivan Pen Sullivan 2020-06 No Pen 10/26" 31G X 10/26" 31G X 1-02 Sullivan 8 MM 8 MM 00:00: 10/26" 31G 00 X 8 MM Pen Sullivan Pen Sullivan 2020-06 No Pen 10/26" 31G X 10/26" 31G X 1-02 Sullivan 8 MM 8 MM 00:00: 10/26" 31G 00 X 8 MM Pen Sullivan Pen Sullivan 2020-06 No Pen 10/26" 31G X 10/26" 31G X 1-02 Sullivan 8 MM 8 MM 00:00: 10/26" 31G 00 X 8 MM Pen Sullivan Pen Sullivan 2020-06 No Pen 10/26" 31G X 10/26" 31G X 1-02 Sullivan 8 MM 8 MM 00:00: 10/26" 31G 00 X 8 MM Pen Sullivan Pen Sullivan 2020-06 No Pen 10/26" 31G X 10/26" 31G X 1-02 Sullivan 8 MM 8 MM 00:00: 10/26" 31G 00 X 8 MM Pen Sullivan Pen Sullivan 2020-06 No Pen 10/26" 31G X 10/26" 31G X 1-02 Sullivan 8 MM 8 MM 00:00: 10/26" 31G 00 X 8 MM Pen Sullivan Pen Sullivan 2020-06 No Pen 10/26" 31G X 10/26" 31G X 1-02 Sullivan 8 MM 8 MM 00:00: 10/26" 31G 00 X 8 MM Pen Sullivan Pen Sullivan 2020-06 No Pen 10/26" 31G X 10/26" 31G X 1-02 Sullivan 8 MM 8 MM 00:00: 10/26" 31G 00 X 8 MM Pen Sullivan Pen Sullivan 2020-06 No Pen 16" 31G X 16" 31G X 1-02 Sullivan 8 MM 8 MM 00:00: 10/26" 31G 00 X 8 MM cholecalcif Yes 1000U QD Take 2.5 M ethodi navi, 1-[address] vitamin D3, 00:00: (1,000 Hosp gilberto 400 unit 00 Units l tablet total) by mouth daily. aspirin Yes 81mg QD Take 81 mg Meth roshni (ECOTRIN) 1-[address] 81 MG 11:49: daily. Hospita enteric 11 l coated tablet cholecalcif Yes 1{tbl} QD Take 1 Me thodi navi, 1-[address] vitamin D3, 11:49: mouth Hospi ta (Vitamin 11 daily. l D3) 125 mcg (5,000 unit) tablet omega-3 Yes 1g Q.5D Take 1 g Method i acid ethyl 1-[address] esters 11:49: (two) Hospita (LOVAZA) 1 11 times a l gram day. capsule insulin Yes Inject 26 Metho di 70/30 NPH 1-[address] and regular 00:00: breakfast H ospita human 00 and 12 l (NovoLIN units AC 70/30 U-100 dinner Insulin) 100 unit/mL (70-30) injection insulin Yes 1{each} Q.5D 1 each 2 Met hodi syringe-nee 1-14 (two) st dle U-100 00:00: times a Hospi ta 0.5 mL . l gauge x 10/26" syringe Fish Oil Fish Oil Yes Lanie 1 capsule C ommon [facility] D3 Adult D3 Adult Yes Lanie 1 tablet Co mmon [facility] Aspirin Aspirin Yes Lanie 1 tablet Comm on [facility] Lipitor Lipitor Yes Lanie 1 tablet Comm on [facility] Diovan HCT Diovan HCT Yes Lanie 1 tablet Common [facility] Metformin Metformin Yes Lanie TAKE 1 Co mmon HCl HCl Gurley TABLET BY Spirit MOUTH - CHI TWICE A [facility] Plavix Plavix Yes Lanie 1 tablet Common [facility] Spirit [facility] Amlodipine Amlodipine Yes Lanie 1 tablet Common Besylate Besylate [facility] Spirit [facility] Atorvastati Atorvastati Yes Lanie not Common n Calcium n Calcium Gurley defined S pirit - CHI [facility] Valsartan-H Valsartan-H Yes Lanie not Common ydrochlorot ydrochlorot Gurley defined Spirit hiazide hiazide - CHI [facility] OneTouch OneTouch No OneTouch Ultra - Ultra - Ultra - Atorvastati Atorvastati No 1{table QD Atorvastat n Calcium n Calcium t} in Calcium 20 MG 20 MG 20 MG Aspirin 81 Aspirin 81 No 1{table QD Aspirin 81 MG MG t} MG NovoLIN NovoLIN No BID NovoLIN 70/30 70/30 70/30 (70-30) 100 (70-30) 100 (70-30) UNIT/ML UNIT/ML 100 UNIT/ML OneTouch OneTouch No OneTouch Ultra - Ultra - Ultra - D3 Adult D3 Adult No 1{table QD D3 Adult 1000 UNIT 1000 UNIT t} 1000 UNIT Metoprolol Metoprolol No Metoprolol Tartrate 25 Tartrate 25 Tartrate MG MG 25 MG NovoLIN NovoLIN No BID NovoLIN 70/30 70/30 70/30 (70-30) 100 (70-30) 100 (70-30) UNIT/ML UNIT/ML 100 UNIT/ML Metoprolol Metoprolol No Metoprolol Tartrate 25 Tartrate 25 Tartrate MG MG 25 MG Atorvastati Atorvastati No 1{table QD Atorvastat n Calcium n Calcium t} in Calcium 40 MG 40 MG 40 MG D3 Adult D3 Adult No 1{table QD D3 Adult 1000 UNIT 1000 UNIT t} 1000 UNIT Aspirin 81 Aspirin 81 No 1{table QD Aspirin 81 MG MG t} MG OneTouch OneTouch No OneTouch Ultra - Ultra - Ultra - OneTouch OneTouch No OneTouch Ultra - Ultra - Ultra - Atorvastati Atorvastati No 1{table QD Atorvastat n Calcium n Calcium t} in Calcium 40 MG 40 MG 40 MG NovoLIN NovoLIN No BID NovoLIN 70/30 70/30 70/30 (70-30) 100 (70-30) 100 (70-30) UNIT/ML UNIT/ML 100 UNIT/ML D3 Adult D3 Adult No 1{table QD D3 Adult 1000 UNIT 1000 UNIT t} 1000 UNIT Metoprolol Metoprolol No BID Metoprolol Tartrate 25 Tartrate 25 Tartrate MG MG 25 MG Aspirin 81 Aspirin 81 No 1{table QD Aspirin 81 MG MG t} MG Aspirin 81 Aspirin 81 No 1{table QD Aspirin 81 MG MG t} MG OneTouch OneTouch No OneTouch Ultra - Ultra - Ultra - Atorvastati Atorvastati No Atorvastat n Calcium n Calcium in Calcium 40 MG 40 MG 40 MG Metoprolol Metoprolol No BID Metoprolol Tartrate 25 Tartrate 25 Tartrate MG MG 25 MG D3 Adult D3 Adult No 1{table QD D3 Adult 1000 UNIT 1000 UNIT t} 1000 UNIT NovoLIN NovoLIN No BID NovoLIN 70/30 70/30 70/30 (70-30) 100 (70-30) 100 (70-30) UNIT/ML UNIT/ML 100 UNIT/ML D3 Adult D3 Adult No 1{table QD D3 Adult 1000 UNIT 1000 UNIT t} 1000 UNIT UltiCare UltiCare No UltiCare Insulin Insulin Insulin Syringe 28G Syringe 28G Syringe X 1/2" 0.5 X 1/2" 0.5 28G X 1/2" ML ML 0.5 ML NovoLIN NovoLIN No NovoLIN 70/30 70/30 70/30 (70-30) 100 (70-30) 100 (70-30) UNIT/ML UNIT/ML 100 UNIT/ML Aspirin 81 Aspirin 81 No 1{table QD Aspirin 81 MG MG t} MG OneTouch OneTouch No OneTouch Ultra - Ultra - Ultra - Metoprolol Metoprolol No BID Metoprolol Tartrate 25 Tartrate 25 Tartrate MG MG 25 MG Atorvastati Atorvastati No Atorvastat n Calcium n Calcium in Calcium 40 MG 40 MG 40 MG D3 Adult D3 Adult No 1{table QD D3 Adult 1000 UNIT 1000 UNIT t} 1000 UNIT NovoLIN NovoLIN No NovoLIN 70/30 70/30 70/30 (70-30) 100 (70-30) 100 (70-30) UNIT/ML UNIT/ML 100 UNIT/ML Atorvastati Atorvastati No Atorvastat n Calcium n Calcium in Calcium 40 MG 40 MG 40 MG UltiCare UltiCare No UltiCare Insulin Insulin Insulin Syringe 28G Syringe 28G Syringe X 1/2" 0.5 X 1/2" 0.5 28G X 1/2" ML ML 0.5 ML Aspirin 81 Aspirin 81 No 1{table QD Aspirin 81 MG MG t} MG OneTouch OneTouch No OneTouch Ultra - Ultra - Ultra - Metoprolol Metoprolol No BID Metoprolol Tartrate 25 Tartrate 25 Tartrate MG MG 25 MG Fenofibrate Fenofibrate No Fenofibrat 145 MG 145 MG e 145 MG NovoLIN NovoLIN No BID NovoLIN 70/30 70/30 70/30 (70-30) 100 (70-30) 100 (70-30) UNIT/ML UNIT/ML 100 UNIT/ML UltiCare UltiCare No UltiCare Insulin Insulin Insulin Syringe 28G Syringe 28G Syringe X 1/2" 0.5 X 1/2" 0.5 28G X 1/2" ML ML 0.5 ML Metoprolol Metoprolol No BID Metoprolol Tartrate 25 Tartrate 25 Tartrate MG MG 25 MG D3 Adult D3 Adult No 1{table QD D3 Adult 1000 UNIT 1000 UNIT t} 1000 UNIT OneTouch OneTouch No OneTouch Ultra - Ultra - Ultra - Aspirin 81 Aspirin 81 No 1{table QD Aspirin 81 MG MG t} MG Atorvastati Atorvastati No Atorvastat n Calcium n Calcium in Calcium 40 MG 40 MG 40 MG Atorvastati Atorvastati No 1{table QD Atorvastat n Calcium n Calcium t} in Calcium 20 MG 20 MG 20 MG Metoprolol Metoprolol No Metoprolol Tartrate 25 Tartrate 25 Tartrate MG MG 25 MG NovoLIN NovoLIN No BID NovoLIN 70/30 70/30 70/30 (70-30) 100 (70-30) 100 (70-30) UNIT/ML UNIT/ML 100 UNIT/ML D3 Adult D3 Adult No 1{table QD D3 Adult 1000 UNIT 1000 UNIT t} 1000 UNIT OneTouch OneTouch No OneTouch Ultra - Ultra - Ultra - Aspirin 81 Aspirin 81 No 1{table QD Aspirin 81 MG MG t} MG Atorvastati Atorvastati No 1{table QD Atorvastat n Calcium n Calcium t} in Calcium 20 MG 20 MG 20 MG Metoprolol Metoprolol No Metoprolol Tartrate 25 Tartrate 25 Tartrate MG MG 25 MG NovoLIN NovoLIN No BID NovoLIN 70/30 70/30 70/30 (70-30) 100 (70-30) 100 (70-30) UNIT/ML UNIT/ML 100 UNIT/ML D3 Adult D3 Adult No 1{table QD D3 Adult 1000 UNIT 1000 UNIT t} 1000 UNIT OneTouch OneTouch No OneTouch Ultra - Ultra - Ultra - Aspirin 81 Aspirin 81 No 1{table QD Aspirin 81 MG MG t} MG Atorvastati Atorvastati No 1{table QD Atorvastat n Calcium n Calcium t} in Calcium 20 MG 20 MG 20 MG Aspirin 81 Aspirin 81 No 1{table QD Aspirin 81 MG MG t} MG NovoLIN NovoLIN No BID NovoLIN 70/30 70/30 70/30 (70-30) 100 (70-30) 100 (70-30) UNIT/ML UNIT/ML 100 UNIT/ML OneTouch OneTouch No OneTouch Ultra - Ultra - Ultra - Metoprolol Metoprolol No Metoprolol Tartrate 25 Tartrate 25 Tartrate MG MG 25 MG D3 Adult D3 Adult No 1{table QD D3 Adult 1000 UNIT 1000 UNIT t} 1000 UNIT OneTouch OneTouch No OneTouch Ultra - Ultra - Ultra - Aspirin 81 Aspirin 81 No 1{table QD Aspirin 81 MG MG t} MG Metoprolol Metoprolol No Metoprolol Tartrate 25 Tartrate 25 Tartrate MG MG 25 MG Atorvastati Atorvastati No 1{table QD Atorvastat n Calcium n Calcium t} in Calcium 20 MG 20 MG 20 MG NovoLIN NovoLIN No BID NovoLIN 70/30 70/30 70/30 (70-30) 100 (70-30) 100 (70-30) UNIT/ML UNIT/ML 100 UNIT/ML D3 Adult D3 Adult No 1{table QD D3 Adult 1000 UNIT 1000 UNIT t} 1000 UNIT Metoprolol Metoprolol No Metoprolol Tartrate 25 Tartrate 25 Tartrate MG MG 25 MG D3 Adult D3 Adult No 1{table QD D3 Adult 1000 UNIT 1000 UNIT t} 1000 UNIT Aspirin 81 Aspirin 81 No 1{table QD Aspirin 81 MG MG t} MG Atorvastati Atorvastati No 1{table QD Atorvastat n Calcium n Calcium t} in Calcium 20 MG 20 MG 20 MG NovoLIN NovoLIN No BID NovoLIN 70/30 70/30 70/30 (70-30) 100 (70-30) 100 (70-30) UNIT/ML UNIT/ML 100 UNIT/ML Vital Signs Vital Name Observation Time Observation Value Comments Source height 2022-02-25 08:40:00 70 [in_i] Common [facility] weight 2022-02-25 08:40:00 201.4 [lb_av] Common [facility] temperature 2022-02-25 08:40:00 97.3 [degF] [facility] bmi 2022-02-25 08:40:00 28.89 kg/m2 [facility] oximetry 2022-02-25 08:40:00 97 % [facility] respiratory rate 2022-02-25 08:40:00 16 /min Comm on [facility] blood pressure 2022-02-25 08:40:00 138 mm[Hg] Common [facility] - systolic [facility] blood pressure 2022-02-25 08:40:00 86 mm[Hg] Common [facility] diastolic [facility] height 2021-11-27 09:40:00 70 [in_i] [facility] weight 2021-11-27 09:40:00 205 [lb_av] [facility] temperature 2021-11-27 09:40:00 97.3 [degF] [facility] bmi 2021-11-27 09:40:00 29.41 kg/m2 [facility] oximetry 2021-11-27 09:40:00 96 % [facility] respiratory rate 2021-11-27 09:40:00 18 /min Comm on [facility] blood pressure 2021-11-27 09:40:00 120 mm[Hg] Common [facility] - systolic [facility] blood pressure 2021-11-27 09:40:00 59 mm[Hg] Common [facility] - diastolic [facility] height 2021-08-28 15:00:00 70 [in_i] Common [facility] weight 2021-08-28 15:00:00 213 [lb_av] [facility] temperature 2021-08-28 15:00:00 97.8 [degF] Common [facility] bmi 2021-08-28 15:00:00 30.56 kg/m2 Common [facility] oximetry 2021-08-28 15:00:00 95 % [facility] respiratory rate 2021-08-28 15:00:00 18 /min Comm on [facility] blood pressure 2021-08-28 15:00:00 140 mm[Hg] [facility] - systolic [facility] blood pressure 2021-08-28 15:00:00 55 mm[Hg] Common [facility] - diastolic [facility] height 2021-03-18 11:20:00 70 [in_i] [facility] weight 2021-03-18 11:20:00 201.4 [lb_av] [facility] temperature 2021-03-18 11:20:00 98.0 [degF] [facility] bmi 2021-03-18 11:20:00 28.89 kg/m2 [facility] oximetry 2021-03-18 11:20:00 98 % [facility] respiratory rate 2021-03-18 11:20:00 16 /min Comm on [facility] blood pressure 2021-03-18 11:20:00 118 mm[Hg] Common [facility] systolic [facility] blood pressure 2021-03-18 11:20:00 55 mm[Hg] [facility] diastolic [facility] Procedures This patient has no known procedures. Plan of Care Planned Activity Planned Date Details Comments Source Future Scheduled 2023-03-[address] [facility] Test 02:18:32 malignant neoplasm of colon (procedure) [code = 550704807] Future Scheduled 2023-03-18 Screening for [facility] Test 02:18:32 malignant neoplasm of colon (procedure) [code = 555316417] Future Scheduled 2023-03-18 Screening for [facility] Test 02:18:32 malignant neoplasm of colon (procedure) [code = 154838279] Future Scheduled 2023-03-18 65+ [facility]AL [facility] Test 02:18:32 VACCINE (1 - PCV) [code = 65+ PNEUMOCOCCAL VACCINE (1 - PCV)] Future Scheduled 2023-03-18 DIABETES: RETINAL EYE [facility] Test 02:18:32 EXAM [code = DIABETES: RETINAL EYE EXAM] Future Scheduled 2023-03-18 DIABETIC FOOT EXAM [facility] Test 02:18:32 [code = DIABETIC FOOT EXAM] Future Scheduled 2023-03-18 URINE MICROALBUMIN [facility] Test 02:18:32 [code = URINE MICROALBUMIN] Future Scheduled 2023-03-18 Hepatitis C screening [facility] Test 02:18:32 (procedure) [code = 562823257] Future Scheduled 2023-03-18 Screening for [facility] Test 02:18:32 malignant neoplasm of colon (procedure) [code = 750579738] Future Scheduled 2023-03-18 Scre[facility] Test 02:18:32 malignant neoplasm of colon (procedure) [code = 713294046] Future Scheduled 2023-03-18 SHINGLES VACCINES (1 Met [facility] Test 02:18:32 of 2) [code = SHINGLES VACCINES (1 of 2)] Future Scheduled 2023-03-18 COVID-19 VACCINE (3 - Me [facility] Test 02:18:32 Moderna series) [code = COVID-19 VACCINE (3 - Moderna series)] Future Scheduled 2023-03-18 INFLUENZA VACCINE (#1) M [facility] Test 02:18:32 [code = INFLUENZA VACCINE (#1)] Encounters Start End Encounter Admission Attending Care Care Encounter Source Date/Time Date/Time Type Type Clinicians Facility Department ID 2023-03-14 Inpatient DYAN SanjayMULUGETA gunter CARD [id number] [facility] 14:30:[address] 2022-11-15 Outpatient Gurley, STLMLC STLMLC [id number] Common 09:01:01 Lanie [id number] [facility] 2022-06-01 Outpatient Gurley, STLMLC STLMLC [id number] Common 09:14:01 Lanie 56884 [facility] 2022-03-17 Outpatient Gurley, STLMLC STLMLC [id number] Common 13:03:01 Lanie [facility] 2022-02-23 Outpatient Gurley, STLMLC STLMLC [id number] Common 14:04:00 Lanie [id number] [facility] 2022-01-01 Outpatient Gurley, STLMLC STLMLC [id number] Common 10:49:00 Lanie [facility] 2021-08-26 Outpatient Gurley, STLMLC STLMLC [id number] Common 09:52:00 Lanie [facility] 2021-07-08 Outpatient Gurley, STLMLC STLMLC [id number] Common 13:56:24 Lanie [id number] [facility] 2021-07-08 Outpatient Gurley, STLMLC STLMLC [id number] Common 13:03:59 Lanie 28751 [facility] 2023-03-14 2023-03-14 Telephone Hopper, [id number] [facility] 00:00:00 00:00:[id number] [place] [id number] Hospit a [id number] l .8 2022-07-20 2022-07-20 (TEL) STLMLC STLMLC [id number] Co mmon 00:00:00 00:00:00 [facility] 2022-07-06 2022-07-06 (TEL) STLMLC STLMLC [id number] Co mmon 00:00:00 00:00:00 [facility] 2022-06-03 2022-06-03 (TEL) STLMLC STLMLC [id number] Co mmon 00:00:00 00:00:00 [facility] 2022-02-25 2022-02-25 OFFICE STLMLC STLMLC [id number] Co mmon 00:00:00 00:00:00 VISIT EST Spir it PT LEVEL 3 [facility] 2021-11-27 2021-11-27 OFFICE STLMLC STLMLC [id number] Co mmon 00:00:00 00:00:00 VISIT [facility] PT - CHI LEVEL 4 [facility] 2021-08-28 2021-08-28 OFFICE STLMLC STLMLC [id number] Co mmon 00:00:00 00:00:00 VISIT EST Spir it PT LEVEL 3 [facility] 2021-07-09 2021-07-09 (TEL) STLMLC STLMLC [id number] Co mmon 00:00:00 00:00:00 [facility] 2021-05-21 2021-05-21 (TEL) STLMLC STLMLC [id number] Co mmon 00:00:00 00:00:00 [facility] 2021-05-11 2021-05-11 (TEL) STLMLC STLMLC [id number] Co mmon 00:00:00 00:00:00 [facility] 2021-04-14 2021-04-14 (TEL) STLMLC STLMLC [id number] Co mmon 00:00:00 00:00:00 [facility] 2021-04-09 2021-04-09 (TEL) STLMLC STLMLC [id number] Co mmon 00:00:00 00:00:00 [facility] 2021-03-18 2021-03-18 OFFICE STLMLC STLMLC [id number] Co mmon 00:00:00 00:00:00 VISIT [facility] PT - CHI [facility] 4 [facility] 2020-12-11 2020-12-11 Outpatient STLMLC STLMLC [id number] Common 00:00:00 00:00:00 [facility] 2020-10-27 2020-10-27 Outpatient STLMLC STLMLC [id number] Common 00:00:00 00:00:00 [facility] 2020-08-19 2020-08-19 Outpatient STLMLC STLMLC [id number] Common 00:00:00 00:00:00 [facility] 2020-07-21 2020-07-21 Outpatient STLMLC STLMLC [id number] Common 00:00:00 00:00:00 [facility] 2020-06-30 2020-06-30 Outpatient STLMLC STLMLC [id number] Common 00:00:00 00:00:00 [facility] 2020-06-16 2020-06-26 Inpatient DILMA [facility] [id number] [place] 00:00:00 00:00:00 , ANDER [facility] 2019-12-20 2019-12-20 [facility] [id number] Common 14:00:00 14:00:00 [facility] [address] [facility] 2019-12-20 2019-12-20 [facility] [id number] Common 08:20:00 08:20:00 t [facility] [address] [facility] 2018-09-07 2018-09-07 [facility] [id number] Common 09:30:00 09:30:00 [facility] 2018-07-13 2018-07-13 [facility] [id number] Common 11:06:00 11:06:[address] [facility] [address] [facility] 2018-03-30 2018-03-30 [facility] [id number] Common 09:34:00 09:34:[address] [facility] [address] [facility] 2018-03-23 2018-03-23 [facility] [id number] Common 14:24:00 14:24:[address] [facility] [address] [facility] 2018-03-15 2018-03-15 [facility] [id number] Common 11:30:00 11:30:00 t [facility] it [facility] Results Test Description Test Time Test Comments Results Result Comments Source SARS-CoV-2 (COVID-19) RNA [Presence] in Respiratory sp ecimen by 2020-06-17 16:06:37 TOM with probe detection Test Item Value Reference Range Interpretation Comme nts SARS-CoV-2 (COVID-19) RNA [Presence] in Respiratory Not detected No t-Detected specimen by TOM with probe detection (test code = 44540-3) SUSANA ROMERO
[2023-03-20 01:25] LABS: Absolute Lymphocytes (CBC) 2.6 K/uL (0.7-4.9); Lymphocytes % 35.8 % (15.3-44.8); MCV 92.7 fL (80-100); MPV 8.2 fL (7.6-11.3); Platelets 141 thou/uL (152-406); RBC Red Blood Cell Count 4.86 M/uL (4.33-5.43)
[2023-03-20 01:50] LABS: Albumin 3.7 g/dL (3.4-5.0); Bilirubin Total 0.3 mg/dL (0.2-1.0)
[2023-03-20 01:51] LABS: Magnesium 2.4 mg/dL (1.6-2.4); Potassium 3.7 mEq/L (3.5-5.1)
[2023-03-20 01:52] LABS: Troponin High Sensitivity 278.9 pg/mL (<58.9)
--- NOTE | 2023-03-20 02:13 | EDPHYS ---
Physician Documentation [facility] Name: Santy Nix Age: 67 yrs Sex: Male : 1955 Arrival Date: 03/20/2023 Time: 00:55 Bed 8 Private MD: ED Physician Jennifer Juan HPI: 03/20 01:15 This 67 yrs old Male presents to ER via Unassigned with complaints of Chest Pain, sd2 Shortness Of Breath. 01:15 67 yo M presents with CC of chest pain. Reports started approximately 2 hours ago while sd2 walking back in his home and has now resolved. Had associated SOB but denies any n/v or diaphoresis. Reports it felt like when he previously had his [place] in the past. Reports having CP multiple times throughout the day for the past weeks to months but has not told his family. Reports last saw his order processing manager, Dr. Burnett, 3 weeks ago and that he was aware. They were planning for a Watchman procedure but was canceled for unknown reasons just recently. Reports also having a normal heart cath [address] Burnett. States he was told there were no issues with his heart cath at that time. . Historical: - Allergies: 01:16 Compazine; as6 - Home Meds: 01:19 aspirin 81 mg oral capsule 1 cap daily [Active]; Xarelto 20 mg oral tablet 1 tab daily as6 [Active]; amiodarone 200 mg Oral tablet 1 tab daily [Active]; atorvastatin 40 mg oral tablet 1 tab daily [Active]; metoprolol tartrate 25 mg oral tablet 2 times per day [Active]; lisinopril 10 mg Oral tablet daily [Active]; Vitamin D Oral daily [Active]; fenofibrate 150 mg oral capsule 1 cap daily [Active]; Jardiance 25 mg oral tablet 1 tab daily [Active]; - PMHx: 01:16 Diabetes - NIDDM; Hyperlipidemia; Hypertension; Myocardial infarction; as6 - PSHx: 01:16 Coronary artery bypass graft; as6 - Immunization history:: Adult Immunizations up to date. - Social history:: Smoking status: Patient denies any tobacco usage or history of. Patient uses alcohol, on a daily basis. ROS: 01:15 Constitutional: Negative for fever, chills, and weight loss, Eyes: Negative for injury, sd2 pain, redness, and discharge, 01:15 Abdomen/GI: Negative for abdominal pain, nausea, vomiting, diarrhea. MS/Extremity: Negative for injury and deformity, Skin: Negative for injury, rash, and discoloration, Neuro: Negative for headache, numbness and tingling. 01:15 Cardiovascular: Positive for chest pain, Negative for edema, 01:15 Respiratory: Positive for shortness of breath, Negative for cough, pleurisy, Exam: 01:15 Constitutional: This is a well developed, well nourished patient who is awake, alert, sd2 and in no acute distress. Head/Face: Normocephalic, atraumatic. Eyes: EOMI, normal conjunctiva bilaterally Chest/axilla: Normal chest wall appearance and motion. Nontender with no deformity. Cardiovascular: Irregularly irregular rhythm with a normal rate. No gallops, murmurs, or rubs. 2+ distal pulses. Respiratory: Lungs have equal breath sounds bilaterally, occasional end expiratory wheeze noted. No rales, rhonchi or wheezes noted. No increased work of breathing, no retractions or nasal flaring. Abdomen/GI: Soft, non-tender, with normal bowel sounds. No guarding or rebound. No evidence of tenderness throughout. Skin: Warm, dry with normal turgor. Normal color with no rashes, no lesions, and no evidence of cellulitis. MS/ Extremity: Pulses equal, no cyanosis. Neurovascular intact. Full, normal range of motion. Ambulatory without difficulty. Psych: Awake, alert, with orientation to person, place and time. Behavior, mood, and affect are within normal limits. 01:15 ECG was reviewed by the Attending Physician. Atrial flutter with variable block, rate sd2 60, no STEMI criteria 02:11 ECG was reviewed by the Attending Physician. Atrial flutter with variable AV block, sd2 rate 54, no STEMI criteria or significant change compared to prior EKG Vital Signs: 01:15 BP 133 / 82; Pulse 76; Resp 16 S; Temp 98.6(O); Pulse Ox 96% on R/A; Weight 90.72 kg as6 (R); Height 5 ft. 10 in. (R); Pain 0/10; 02:23 BP 109 / 62; Pulse 53; Resp 17; Pulse Ox 96% ; Pain 0/10; jj7 03:00 BP 115 / 58; Pulse 54; Resp 18; Pulse Ox 96% on R/A; rv 04:00 BP 123 / 74; Pulse 58; Resp 16; Pulse Ox 96% on R/A; rv 05:00 BP 125 / 70; Pulse 55; Resp 16; Pulse Ox 96% on R/A; rv 05:52 BP 143 / 73; Pulse 56; Resp 16; Pulse Ox 97% on R/A; rv 06:53 BP 140 / 42; Pulse 59; Resp 19; Pulse Ox 96% ; jj7 07:59 BP 149 / 82; Pulse 59; Resp 18; Pulse Ox 97% on R/A; hb 09:09 BP 141 / 81; Pulse 59; Resp 17; Pulse Ox 97% on R/A; hb 01:15 Body Mass Index 28.70 (90.72 kg, 177.8 cm) as6 01:15 Pain Scale: Adult as6 02:23 Pain Scale: Adult jj7 Bradley Coma Score: 05:52 Eye Response: spontaneous(4). Motor Response: obeys commands(6). Verbal Response: rv oriented(5). Total: 15. MDM: 01:02 Patient medically screened. sd2 01:15 Differential diagnosis: Differential diagnosis includes but is not limited to: ACS, sd2 DVT/PE, pneumothorax, dissection, musculoskeletal, anxiety, anemia, electrolyte abnormality, pneumonia, CHF, COPD among others. The patient was not given aspirin in the Emergency Department. Patient reports taking aspirin within the past 24 hours. Data reviewed: vital signs, nurses notes, lab test result(s), EKG, radiologic studies. 02:14 HEART Score: History: Highly Suspicious (2), ECG: Normal (0), Age: > or = 65 years (2), sd2 Risk Factors: > or = 3 Risk factors for atherosclerotic disease (2), Troponin: > or = 3 x Normal Limit (2), Total Score = 8. Historians other than the Patient: Spouse/Significant Other: provides further HPI including the fact that the patient actually had a near syncopal episode and slumped over with the pain at home dropping chicken wings on the ground but remained responsive throughout the episode clutching his chest. Counseling: I had a detailed discussion with the patient and/or guardian regarding the historical points, exam findings, and any diagnostic results supporting the discharge/admit diagnosis, lab results, radiology results, the need to transfer to another facility. 02:17 ED course: Pt remains CP free with elevated troponin on labs. No EKG changes noted x2. sd2 Pt will need transfer due to no oracle hyperion consultant cardiology at our facility currently. Requests [facility] as he previously had his bypass performed there. Pt in agreement with plan for transfer and is currently stable for transfer. . 04:26 ED course: Discussed case with Cardiology at [facility] who states they will accept but sd2 patient was seen by a different cardiology group previously and will need acceptance by this group. Pending callback from a different order processing manager at this time for acceptance.. 04:49 ED course: Discussed case with appropriate order processing manager at [facility] who accepts sd2 patient for transfer but would like an accepting hospitalist as well prior to completing the transfer. Awaiting callback. . 03/20 01:15 Order name: CBC with Diff; Complete Time: 02:00 sd2 03/20 01:15 Order name: CMP; Complete Time: 02:00 sd2 03/20 01:15 Order name: Troponin High Sensitivity; Complete Time: 02:00 sd2 03/20 01:15 Order name: Magnesium; Complete Time: 02:00 sd2 03/20 01:15 Order name: BNP; Complete Time: 02:00 sd2 03/20 01:15 Order name: XRAY Chest (1 view) sd2 03/20 01:15 Order name: EKG - Nurse/Tech; Complete Time: 01:15 sd2 03/20 02:01 Order name: EKG - Nurse/Tech; Complete Time: 02:16 sd2 Administered Medications: 02:23 Drug: Aspirin PO Chewable Tablet 324 mg PO once; 81 mg tablets x 4 Route: PO; rv 05:53 Follow up: Response: No adverse reaction rv Disposition: 04:49 Critical Care:. sd2 Disposition Summary: 03/20/23 02:12 Transfer Ordered Notes: Transfer Location: [facility] sd2 Reason: Higher level of care sd2 Condition: Stable sd2 Problem: new sd2 Symptoms: have improved sd2 Accepting Physician: [facility] Physician(03/20/23 09:16) hb Diagnosis - Chest pain, unspecified sd2 - Syncope Near sd2 - Subsequent non-ST elevation (NSTEMI) myocardial infarction sd2 Forms: - Medication Reconciliation Form sd2 - SBAR form sd2 Critical care time excluding procedures: 04:49 Critical care time: Bedside Care: 30 minutes, Consultation: 15 minutes, Family sd2 Intervention: 10 minutes. Total time: 55 minutes Signatures: Dispatcher [employer] EDMS Julissa Arevalo RN RN hb Vicente, Ronaldo, RN RN rv Slawson, Ashby, RN RN as6 Jennifer Juan MD MD sd2 Corrections: (The following items were deleted from the chart) 01:24 01:15 Constitutional: This is a well developed, well nourished patient who is awake, sd2 alert, and in no acute distress. Head/Face: Normocephalic, atraumatic. Eyes: EOMI, normal conjunctiva bilaterally Chest/axilla: Normal chest wall appearance and motion. Nontender with no deformity. Cardiovascular: Regular rate and rhythm with a normal S1 and S2. No gallops, murmurs, or rubs. 2+ distal pulses. Respiratory: Lungs have equal breath sounds bilaterally, occasional end expiratory wheeze noted. No rales, rhonchi or wheezes noted. No increased work of breathing, no retractions or nasal flaring. Abdomen/GI: Soft, non-tender, with normal bowel sounds. No guarding or rebound. No evidence of tenderness throughout. Skin: Warm, dry with normal turgor. Normal color with no rashes, no lesions, and no evidence of cellulitis. MS/ Extremity: Pulses equal, no cyanosis. Neurovascular intact. Full, normal range of motion. Ambulatory without difficulty. Psych: Awake, alert, with orientation to person, place and time. Behavior, mood, and affect are within normal limits. sd2 02:13 02:12 [facility] Physician sd2 sd2 09:16 02:13 [facility] Physician sd2 hb
--- NOTE | 2023-03-20 02:13 | ER ---
Nurse's Notes 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 Coronavirus screen: At this time, the client does not indicate any symptoms associated with coronavirus-19. Ebola Screen: No symptoms or risks identified at this time. Initial Sepsis Screen: Does the patient meet any 2 criteria? No. Patient's initial sepsis screen is negative. Does the patient have a suspected source of infection? No. Patient's initial sepsis screen is negative. Risk Assessment: Do you want to hurt yourself or someone else? Patient reports no desire to harm self or others. Onset of symptoms was March 20, 2023. 01:16 Acuity: TANNA 3 as6 01:16 Method Of Arrival: Wheelchair as6 Historical: - Allergies: 01:16 Compazine; as6 - Home Meds: 01:19 aspirin 81 mg oral capsule 1 cap daily [Active]; Xarelto 20 mg oral tablet 1 tab daily as6 [Active]; amiodarone 200 mg Oral tablet 1 tab daily [Active]; atorvastatin 40 mg oral tablet 1 tab daily [Active]; metoprolol tartrate 25 mg oral tablet 2 times per day [Active]; lisinopril 10 mg Oral tablet daily [Active]; Vitamin D Oral daily [Active]; fenofibrate 150 mg oral capsule 1 cap daily [Active]; Jardiance 25 mg oral tablet 1 tab daily [Active]; - PMHx: 01:16 Diabetes - NIDDM; Hyperlipidemia; Hypertension; Myocardial infarction; as6 - PSHx: 01:16 Coronary artery bypass graft; as6 - Immunization history:: Adult Immunizations up to date. - Social history:: Smoking status: Patient denies any tobacco usage or history of. Patient uses alcohol, on a daily basis. Screenin:10 [facility] ED Fall Risk Assessment (Adult) History of falling in the last 3 months, jj7 including since admission No falls in past 3 months (0 pts) Confusion or Disorientation No (0 pts) Intoxicated or Sedated Yes (3 pts) Impaired Gait No (0 pts) Mobility Assist Device Used Yes (1 pt) Altered Elimination No (0 pt) Score/Fall Risk Level 0 - 2 = Low Risk Oriented to surroundings, Maintained a safe environment. Abuse screen: Denies threats or abuse. Nutritional screening: On. Nutritional screening: No deficits noted. Tuberculosis screening: No symptoms or risk factors identified. Assessment: 01:10 General: Appears in no apparent distress. comfortable, Behavior is calm, cooperative, jj7 appropriate for age. Pain: Denies pain. Cardiovascular: Denies chest pain, palpitations, shortness of breath. 01:34 Reassessment: CACHORRO HUGO [phone]. rv 05:50 Reassessment: report given to Ravi ROMERO. rv 07:13 Reassessment: REPORT GIVEN TO DAY SHIFT NURSES. jj7 08:00 Reassessment: Patient appears in no apparent distress at this time. Patient and/or hb family updated on plan of care and expected duration. Pain level reassessed. 09:09 Reassessment: Patient appears in no apparent distress at this time. Patient and/or hb family updated on plan of care and expected duration. Pain level reassessed. Patient is alert, oriented x 3, equal unlabored respirations, skin warm/dry/pink. Vital Signs: 01:15 BP 133 / 82; Pulse 76; Resp 16 S; Temp 98.6(O); Pulse Ox 96% on R/A; Weight 90.72 kg as6 (R); Height 5 ft. 10 in. (R); Pain 0/10; 02:23 BP 109 / 62; Pulse 53; Resp 17; Pulse Ox 96% ; Pain 0/10; jj7 03:00 BP 115 / 58; Pulse 54; Resp 18; Pulse Ox 96% on R/A; rv 04:00 BP 123 / 74; Pulse 58; Resp 16; Pulse Ox 96% on R/A; rv 05:00 BP 125 / 70; Pulse 55; Resp 16; Pulse Ox 96% on R/A; rv 05:52 BP 143 / 73; Pulse 56; Resp 16; Pulse Ox 97% on R/A; rv 06:53 BP 140 / 42; Pulse 59; Resp 19; Pulse Ox 96% ; jj7 07:59 BP 149 / 82; Pulse 59; Resp 18; Pulse Ox 97% on R/A; hb 09:09 BP 141 / 81; Pulse 59; Resp 17; Pulse Ox 97% on R/A; hb 01:15 Body Mass Index 28.70 (90.72 kg, 177.8 cm) as6 01:15 Pain Scale: Adult as6 02:23 Pain Scale: Adult jj7 Goldvein Coma Score: 05:52 Eye Response: spontaneous(4). Motor Response: obeys commands(6). Verbal Response: rv oriented(5). Total: 15. ED Course: 00:57 Patient arrived in ED. jj6 01:00 No provider procedures requiring assistance completed. Inserted saline lock: 20 gauge rv in right forearm, using aseptic technique. Blood collected. 01:01 Jennifer Juan MD is Attending Physician. sd2 01:10 Ino Yang, HEATHER is Primary Nurse. jj7 01:10 Patient has correct armband on for positive identification. Bed in low position. Call j light in reach. Adult w/ patient. Client placed on continuous cardiac and pulse oximetry monitoring. NIBP monitoring applied. drafter refrigeration on. Pulse ox on. NIBP on. 01:10 Patient maintains SpO2 saturation greater than 95% on room air. jj7 01:16 Arm band placed on. as6 01:18 Triage completed. as6 01:42 XRAY Chest (1 view) In Process Unspecified. EDMS 02:02 Initiated transfer to [facility]. [facility] 03:43 [facility] fieldwork coordinator called with update, "waiting on Dr to answer call- has [facility] contacted 5 times". 05:12 Patient accepted to [place] [address] Garcia. 5 05:15 Contacted [facility] for transport, 6:30 ETA. Contacted [facility] to request [facility] transport but was given 8:30 ETA. Administered Medications: 02:23 Drug: Aspirin PO Chewable Tablet 324 mg PO once; 81 mg tablets x 4 Route: PO; rv 05:53 Follow up: Response: No adverse reaction rv Medication: 01:10 VIS not applicable for this client. jj7 Outcome: 02:12 ER care complete, transfer ordered by . sd2 09:16 Patient left the ED. Signatures: Dispatcher [employer] EDMS Julissa Arevalo RN RN Matt Martin RN RN Zakia Mireles jj6 Colin Ha RN RN as6 Jennifer Juan MD MD sd2 Ino Yang RN RN jj7 Ramila Feliciano 5 Corrections: (The following items were deleted from the chart) 06:03 06:02 Patient accepted to [place] [id number] Garcia 5 5
[2023-03-20] MEDS ORDERED: ASPIRIN 81 MG CHEWABLE TABLET ONE (02:31)
[2023-03-20 09:39] VITALS: TEMP 98.6
[2023-03-20 09:48] VITALS: O2SAT 97
[2023-03-20 09:49] VITALS: BP 141/81
--- NOTE | 2023-03-21 10:03 | RAD REPORT ---
EXAM DESCRIPTION: RAD - Chest Single View - 03/20/2023 1:41 am CLINICAL HISTORY: The patient is 67 years old and is Male; CHEST PAIN TECHNIQUE: Frontal view of the chest. COMPARISON: No relevant prior studies available. FINDINGS: Lungs: Mildly prominent interstitial markings. No consolidation. Pleural space: Unremarkable. No pneumothorax. Heart: Unremarkable. Mediastinum: Postsurgical changes overlying the mediastinum. Bones/joints: No acute findings. IMPRESSION: No acute findings in the chest. Electronically signed by: Ty Chapin MD 03/20/2023 1:50 AM CDT Due to temporary technical issues with the PACS/Fluency reporting system, reports are being signed by the in house radiologist without review as a courtesy to ensure prompt reporting. The interpreting r adiologist is fully responsible for the content of the report.
--- NOTE | 2023-03-21 12:18 | EKG ---
Test Date: 2023-03-20 Test Time: 02:08:00 Hotel Office Manager: DOMENIC MEASUREMENT RESULTS: Intervals: Rate: 54 TX: QRSD: 98 QT: 492 QTc: 466 [place]: P: TX: QRS: 61 T: 123 INTERPRETIVE STATEMENTS: Atrial flutter with variable AV block ST & T wave abnormality, consider lateral ischemia Prolonged QT Abnormal ECG Compared to ECG 03/20/2023 01:12:11 No significant changes Electronically Signed On 03-21-23 12:15:16 CDT by Seb Burnett
--- NOTE | 2023-03-21 12:19 | EKG ---
Test Date: 2023-03-20 Test Time: 01:12:11 Certified Drug Counselor: DOMENIC MEASUREMENT RESULTS: Intervals: Rate: 60 ME: QRSD: 98 QT: 538 QTc: 538 [place]: P: ME: QRS: 83 T: 121 INTERPRETIVE STATEMENTS: Atrial flutter with variable AV block ST & T wave abnormality, consider anterolateral ischemia Prolonged QT Abnormal ECG Compared to ECG 11/26/2022 08:03:06 ST (T wave) deviation now present Possible ischemia now present Prolonged QT interval now present Sinus bradycardia no longer present First degree AV block no longer present Right-axis deviation no longer present T-wave abnormality no longer present Electronically Signed On 03-21-23 12:15:19 CDT by Seb Burnett
== END 2023-03-20 09:16 | disposition short-term general hospital (02) ==
LOC: ER 00:55
DX: I22.2 Subsequent non-ST elevation (NSTEMI) myocardial infarction (principal); I21.9 Acute myocardial infarction, unspecified; R55 Syncope and collapse; I10 Essential (primary) hypertension; E11.9 Type 2 diabetes mellitus without complications; Z95.1 Presence of aortocoronary bypass graft; Z79.01 Long term (current) use of anticoagulants; Z79.82 Long term (current) use of aspirin; Z88.1 Allergy status to other antibiotic agents
CPT/HCPCS: 36415; 71045; 80053; 83735; 83880; 84484; 85025; 93005; 99285